=== PATIENT | male | born 1975 | race African-American/Black ===

== ENCOUNTER 2018-09-23 11:25 | Emergency (ER) | payer OTHER, MEDICAID, SELFPAY ==
[2018-09-23 11:32] VITALS: BP 199/117; PULSE 107; RESP 20; TEMP 37; O2SAT 99; BMI 31.1
--- NOTE | 2018-09-23 11:38 | ED.EXTPRO ---
HPI - Extremity Problem <Kelli Mccracken PA-C - Last Filed: 09/23/18 17:06> General Chief complaint: Extremity Problem,Nontraumatic Stated complaint: right calf pain up to back,cant put pressure on it Time Seen by Provider: 09/23/18 11:26 Source: patient Mode of arrival: ambulatory Limitations: no limitations History of Present Illness HPI Narrative: This 43-year-old male complains of 2 day history of worsening right calf pain and swelling. He states 2 days ago, he was in the [employer] hiking about 11 miles with a heavy pack. He does not know of any specific injury but does think he pricked his leg in some bushes. He states that after, he had sensation of a charley horse or pulled muscle. He states that yesterday he thought stretching and working out would help this so tried heat, ice, massage, workout and stretch. Today the pain and swelling or worse to the point that he is having difficulty walking. He does not have weakness or paresthesia. He has not had any fever or noted any overlying skin changes and states he is feeling otherwise at baseline. He notes that he is aware of his very high blood pressure and has not picked up his medication yet that was prescribed recently. He does not have chest pain or dyspnea. No history of blood clots Related Data Previous Rx's Medication Instructions Recorded amoxicillin-pot clavulanate 875 mg PO BID 14 Days #0 tab 02/01/17 [Augmentin] ketorolac 10 mg PO Q6HP PRN #15 tab 02/01/17 Allergies Allergy/AdvReac Type Severity Reaction Status Date / Time No Known Drug Allergies Allergy Verified 09/23/18 11:38 Review of Systems <Kelli Mccracken PA-C - Last Filed: 09/23/18 17:06> Review of Systems ROS Unobtainable: All systems reviewed & are unremarkable except as noted in HPI and below PFSH <Kelli Mccracken PA-C - Last Filed: 09/23/18 17:06> Medical History (Updated 09/23/18 @ 17:02 by Kelli Mccracken PA-C) HTN (hypertension) (Chronic) History of substance abuse (Resolved) Surgical History (Updated 09/23/18 @ 11:41 by Kelli Mccracken PA-C) Status post hernia repair (Resolved) Status post total knee replacement, right (Resolved) Social History Smoking Status: Current every day smoker Social History Smoking Status: Current every day smoker Comment: Uses THC, no ETOH. History of meth and heroin, none currently Exam <Kelli Mccracken PA-C - Last Filed: 09/23/18 17:06> Narrative Exam Narrative: GENERAL APPEARANCE: Patient sitting comfortably, in no distress. NECK/THYROID: Neck supple, no JVD. LUNGS: Clear to auscultation bilaterally. HEART: Regular rate and rhythm without murmur, normal S1, S2, no S3 or S4. EXTREMITIES: No cyanosis or pedal edema. Pedal pulses intact 2+ bilaterally, feet are warm. Right calf is edematous, indurated, tender. No erythema, no visible skin wounds NEUROLOGIC: Alert and oriented, normal speech, and coordination. Sensation grossly intact over the lower extremities Initial Vital Signs Initial Vital Signs: Vital Signs Temperature 98.6 F 09/23/18 11:32 Pulse Rate 107 H 09/23/18 11:32 Respiratory Rate 20 09/23/18 11:32 Blood Pressure 199/117 H 09/23/18 11:32 Pulse Oximetry 99 09/23/18 11:32 <Jayda Hartley DO - Last Filed: 09/24/18 07:49> Initial Vital Signs Initial Vital Signs: Vital Signs Temperature 98.6 F 09/23/18 11:32 Pulse Rate 107 H 09/23/18 11:32 Respiratory Rate 20 09/23/18 11:32 Blood Pressure 199/117 H 09/23/18 11:32 Pulse Oximetry 99 09/23/18 11:32 GENERAL: Well-appearing, well-nourished and in no acute distress. CARDIOVASCULAR: peripheral pulses in tact, cap refill <2 sec RESPIRATORY: No respiratory distress, speaks in full sentences without difficulty EXTREMITIES: Normal range of motion, no clubbing or edema. Neurovascularly intact Right lower extremity extreme tenderness to touch.I actually do not appreciate any color change no erythema no contusion. Distal pedal pulses intact moving quite easily NEUROLOGICAL: Cranial nerves II through XII grossly intact. Normal gait and speech. SKIN: Warm, dry, no petechiae, no rashes or lesions. Course <Kelli Mccracken PA-C - Last Filed: 09/23/18 17:06> Orders Ordered: ED Orders 09/23/18 11:37 periph venous low extrem rt Stat 09/23/18 13:19 Basic Metabolic Panel Stat Complete Blood Count AUTO DIFF Stat Creatine Kinase Stat Vital Signs - 8 hr 09/23/18 11:32 09/23/18 14:12 09/23/18 14:22 Temperature 98.6 F Pulse Rate 107 H 98 H 70 Respiratory Rate 20 18 17 Blood Pressure 199/117 H Blood Pressure [Left Arm] 182/124 H Pulse Oximetry 99 100 100 <Jayda Hartley DO - Last Filed: 09/24/18 07:49> Orders Ordered: ED Orders 09/23/18 11:37 perip venous low extrem rt Stat 09/23/18 13:19 Basic Metabolic Panel Stat Complete Blood Count AUTO DIFF Stat Creatine Kinase Stat Vital Signs - 8 hr 09/23/18 11:32 09/23/18 14:12 09/23/18 14:22 Temperature 98.6 F Pulse Rate 107 H 98 H 70 Respiratory Rate 20 18 17 Blood Pressure 199/117 H Blood Pressure [Left Arm] 182/124 H Pulse Oximetry 99 100 100 MDM - Extremity (Nontraumatic) <Kelli Mccracken PA-C - Last Filed: 09/23/18 17:06> Lab Data Attestation: I reviewed the patient's lab results. Result diagrams: 09/23/18 13:19 09/23/18 13:19 Lab Results 09/23/18 09/23/18 Range/Units 13:19 13:19 WBC 6.0 (4.5-11.0) X10^3/uL RBC 4.46 L (4.5-5.9) X10^6/uL Hgb 13.3 L (13.5-17.5) g/dL Hct 39.9 L (41-53) % MCV 89.6 (80-100) fL MCH 29.8 (26-34) PG MCHC 33.2 (30-36) % RDW 12.9 (11.6-14.8) % Plt Count 308 (150-400) X10^3/uL Neut % (Auto) 64.7 (50-75) % Lymph % (Auto) 26.2 (25-40) % [place] % (Auto) 7.8 (3-14) % Eos % (Auto) 0.3 L (2-4) % Baso % (Auto) 1.0 (0-2) % Neut # (Auto) 3900 (9791-5197) /uL Lymph # (Auto) 1600 (7028-9094) /uL [place] # (Auto) 500 (0-900) /uL Eos # (Auto) 0 (0-450) /uL Baso # (Auto) 100 (0-100) /uL Sodium 139 (137-145) mmol/L Potassium 3.9 (3.4-5.1) mmol/L Chloride 101 (98-107) mmol/L Carbon Dioxide 28 (22-32) mmol/L BUN 8 L (9-20) mg/dL Creatinine 0.90 (0.66-1.25) mg/dL Estimated GFR > 60.0 (>60) mL/min BUN/Creatinine Ratio 8.9 (6-22) Glucose 84 (70-100) mg/dL Calcium 9.5 (8.4-10.2) mg/dL Total Creatine Kinase 361 H (55-170) U/L Imaging Data Venous US: Radiologist's impression: [place] [address] Ultrasound Report Signed Patient: Farhad Copeland PMR#: [id number] : 1975Acct:[id number] Age/Sex: 43 / MDate of Service: 09/23/18 Loc: ED Accession Number: [id number] Procedure: US periph venous low extrem rt Ordering Provider: Kelli Mccracken P.A-C PROCEDURE: US PERIPH VENOUS LOW EXTREM RT INDICATIONS: LEG PAIN AND SWELLING TECHNIQUE: Real-time imaging, as well as color and pulse Doppler interrogation, were performed of the lower extremity deep veins from the inguinal ligament to the popliteal fossa. COMPARISON: None. FINDINGS: The common femoral, femoral and popliteal veins are normally compressible, and free of intraluminal thrombus. Color and pulse Doppler demonstrate normal phasic intraluminal flow. There is normal augmentation response to distal compression maneuver. There is a 1.9 x 8.5 x 2.8 cm hematoma within the medial right calf. IMPRESSION: No evidence of right lower extremity deep vein thrombosis. Dictated by: Mabel Pineda MD, PhD on 09/23/2018 at 12:50 Approved by: Mabel Pineda MD, PhD on 09/23/2018 at 12:51 <Jayda Odilia, DO - Last Filed: 09/24/18 07:49> Lab Data Lab Results 09/23/18 09/23/18 Range/Units 13:19 13:19 WBC 6.0 (4.5-11.0) X10^3/uL RBC 4.46 L (4.5-5.9) X10^6/uL Hgb 13.3 L (13.5-17.5) g/dL Hct 39.9 L (41-53) % MCV 89.6 (80-100) fL MCH 29.8 (26-34) PG MCHC 33.2 (30-36) % RDW 12.9 (11.6-14.8) % Plt Count 308 (150-400) X10^3/uL Neut % (Auto) 64.7 (50-75) % Lymph % (Auto) 26.2 (25-40) % [place] % (Auto) 7.8 (3-14) % Eos % (Auto) 0.3 L (2-4) % Baso % (Auto) 1.0 (0-2) % Neut # (Auto) 3900 (6030-2916) /uL Lymph # (Auto) 1600 (1428-7394) /uL [place] # (Auto) 500 (0-900) /uL Eos # (Auto) 0 (0-450) /uL Baso # (Auto) 100 (0-100) /uL Sodium 139 (137-145) mmol/L Potassium 3.9 (3.4-5.1) mmol/L Chloride 101 (98-107) mmol/L Carbon Dioxide 28 (22-32) mmol/L BUN 8 L (9-20) mg/dL Creatinine 0.90 (0.66-1.25) mg/dL Estimated GFR > 60.0 (>60) mL/min BUN/Creatinine Ratio 8.9 (6-22) Glucose 84 (70-100) mg/dL Calcium 9.5 (8.4-10.2) mg/dL Total Creatine Kinase 361 H (55-170) U/L Discharge Plan Departure Patient Disposition: Home Clinical Impression: Hematoma of lower leg Strain of calf muscle Qualifiers: Encounter type: initial encounter Laterality: right Qualified Code(s): S86.811A - Strain of other muscle(s) and tendon(s) at lower leg level, right leg, initial encounter Discharge Date/Time: 09/23/18 14:24 Interventions: ED Discharge Assessment Last Done: 09/23/18 14:22 Instructions: DI for Calf Muscle Strain, DI for Hematoma (Bruise) Activity Restrictions/Additional Instructions: In addition to straining or calf muscle, you have a collection of blood called a hematoma causing pressure on the muscle under the skin. This does not appear to be creating dangerous pressure on the lower leg or foot. Please elevate the leg above your heart and rest it as much as possible. Gentle walking with the crutches is okay as needed, but keep pressure off of the calf. You should return to the closest ED if you have acutely worsening symptoms, i.e. sudden increase in pain, numbness, cold, or color change in the foot or large increase in swelling. Please set up care with a primary care provider for follow-up from your visit here as well as on your high blood pressure and visit to the other hospital a couple of weeks ago. This is important, and you should call the natural resources manager at [facility] at [phone] when you leave her to get help with this or call your insurance company for a referral so you can be seen next week. I suggest picking up and starting her new blood pressure medicine today. Prescriptions: No Action ketorolac 10 MG tablet 10 mg PO Q6HP PRNQty: 15 RF: 0 amoxicillin-pot clavulanate [Augmentin] 875 MG/125 MG tablet 875 mg PO BID 14 Days Qty: 0 RF: 0 <Jayda Hartley DO - Last Filed: 09/24/18 07:49> [facility] Attending Keshav Attestation: I was immediately available in the department for consultation. Documentation has been reviewed. I agree with assessment and plan. No sign or symptom of compartment syndrome. CPK normal. Hematoma noted on ultrasound.
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
[2018-09-23 13:26] LABS: Add Manual Diff / Slide Review NO; Basophils Absolute Auto 100 /uL (0-100); Eosinophils Absolute Auto 0 /uL (0-450); Eosinophils Percent Auto 0.3 % (2-4); Hematocrit 39.9 % (41-53); Hemoglobin 13.3 g/dL (13.5-17.5); Lymphocytes Absolute Auto 1600 /uL (1100-4500); Lymphocytes Percent Auto 26.2 % (25-40); Mean Corpuscular HGB Conc 33.2 % (30-36); Mean Corpuscular Hemoglobin 29.8 PG (26-34); Mean Corpuscular Volume 89.6 fL (80-100); Monocytes Absolute Auto 500 /uL (0-900); Monocytes Percent Auto 7.8 % (3-14); Neutrophils Absolute Auto 3900 /uL (1500-7000); Neutrophils Percent Auto 64.7 % (50-75); Platelet Count 308 X10^3/uL (150-400); Red Blood Cell Count 4.46 X10^6/uL (4.5-5.9); Red Cell Distribution Width 12.9 % (11.6-14.8)
[2018-09-23 13:37] LABS: BUN Creatinine Ratio 8.9 (6-22); Blood Urea Nitrogen 8 mg/dL (9-20); Calcium 9.5 mg/dL (8.4-10.2); Carbon Dioxide 28 mmol/L (22-32); Chloride 101 mmol/L (98-107); Creatine Kinase 361 U/L (55-170); Estimated Glomerular Filt Rate > 60.0 mL/min (>60); Glucose 84 mg/dL (70-100); HEMOLYSIS < 15 (0-50); Potassium 3.9 mmol/L (3.4-5.1); Sodium 139 mmol/L (137-145)
[2018-09-23 14:12] VITALS: BP 182/124; PULSE 98; RESP 18; O2SAT 100
[2018-09-23 14:22] VITALS: PULSE 70; RESP 17; O2SAT 100
== END 2018-09-23 14:24 | disposition home or self-care (01) ==
PROVIDERS: Emergency Provider Internal Medicine
DX: S80.11XA Contusion of right lower leg, initial encounter (principal); S86.811A Strain of other muscle(s) and tendon(s) at lower leg level, right leg, initial encounter; Y93.01 Activity, walking, marching and hiking
CPT/HCPCS: 36415; 80048; 82550; 85025; 93971; 99282; 99284

== ENCOUNTER 2018-10-27 12:55 | Emergency (ER) | payer OTHER, MEDICAID, SELFPAY ==
[2018-10-27 13:02] VITALS: BP 168/116; PULSE 105; RESP 18; TEMP 37.1; O2SAT 99; BMI 32.5
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
[2018-10-27] MEDS: LIDOCAINE 1% 20 ML INJ SUBCUT (13:37)
[2018-10-27] MEDS: TET,DIPH,PERTUSS(ACELL),VAC/PF 0.5 ML SYRINGE IM (13:38)
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
[2018-10-27 14:48] VITALS: BP 115/104; PULSE 105
== END 2018-10-27 14:50 | disposition home or self-care (01) ==
PROVIDERS: Emergency Provider Emergency Medicine
DX: S61.442A Puncture wound with foreign body of left hand, initial encounter (principal); Y24.0XXA Airgun discharge, undetermined intent, initial encounter; Z23 Encounter for immunization
CPT/HCPCS: 10120; 73130; 90471; 99283; 90715

== ENCOUNTER 2019-04-08 10:50 | Emergency (ER) | payer MEDICAID, SELFPAY ==
[2019-04-08 10:58] VITALS: BP 179/110; PULSE 110; RESP 13; TEMP 36.7; O2SAT 98
--- NOTE | 2019-04-08 11:03 | PC.NURSE ---
nasal clamp placed at triage
[2019-04-08 11:50] LABS: Add Manual Diff / Slide Review NO; Basophils Absolute Auto 0 /uL (0-100); Basophils Percent Auto 0.8 % (0-2); Eosinophils Absolute Auto 0 /uL (0-450); Eosinophils Percent Auto 0.1 % (2-4); Hemoglobin 14.7 g/dL (13.5-17.5); Lymphocytes Absolute Auto 1400 /uL (1100-4500); Lymphocytes Percent Auto 22.9 % (25-40); Mean Corpuscular HGB Conc 33.5 % (30-36); Mean Corpuscular Hemoglobin 29.9 PG (26-34); Mean Corpuscular Volume 89.4 fL (80-100); Monocytes Absolute Auto 800 /uL (0-900); Monocytes Percent Auto 13.2 % (3-14); Neutrophils Absolute Auto 3800 /uL (1500-7000); Platelet Count 308 X10^3/uL (150-400); Red Blood Cell Count 4.92 X10^6/uL (4.5-5.9); Red Cell Distribution Width 13.1 % (11.6-14.8)
[2019-04-08] MEDS: LOSARTAN 50 MG TABLET PO (11:52)
--- NOTE | 2019-04-08 11:53 | ED_ITS ---
HPI - General Adult <PRAVIN Alonso - Last Filed: 04/08/19 14:41> General Chief complaint: Hypertension Stated complaint: high bp, bloody nose x 45 mins Time Seen by Provider: 04/08/19 11:15 Source: patient Mode of arrival: Ambulatory Limitations: no limitations History of Present Illness HPI narrative: The patient is a 43-year-old male current smoker with history of hypertension who presents with a chief complaint of a nose bleed and hypertension. He states he has been without his medications for the past three to four days. He started having a slight nosebleed forty five minutes prior to arrival, Has not applied anything or applied pressure. upon my exam he has removed the nose clamp that was placed on an event triage. He denies any chest pain, shortness of breath, nausea vomiting or diarrhea. He states he had light headedness a few days ago, but none currently. He states he does not know the dose or name of the blood pressure medication that he is supposed to be on. He knows it is not amlodipine as he had a negative reaction to that. He recommends I call [facility] in order to find out what medication he is supposed to be on. He states he is completely out of his losartan. Related Data Allergies Allergy/AdvReac Type Severity Reaction Status Date / Time No Known Drug Allergies Allergy Verified 10/27/18 13:01 Review of Systems <PRAVIN Alonso - Last Filed: 04/08/19 14:41> Review of Systems Narrative: GENERAL: See HPI HEENT: Denies sinus pain, ear pain, sore throat, difficulty swallowing, dizziness. RESPIRATORY: Denies dyspnea, cough, wheezing, hemoptysis, sputum. CARDIOVASCULAR: See HPI GASTROINTESTINAL: Denies nausea, vomiting, abdominal pain, diarrhea, constipation, melena. : Denies dysuria, frequency, incontinence, hematuria, urinary retention. MUSCULOSKELETAL: denies weakness, joint pain, or bony pain SKIN: See HPI NEUROLOGIC: Denies weakness, headache, numbness, change in speech, confusion, seizures, incoordination. PSYCHIATRIC: No concerning psychosocial issues. 12 point review of systems is negative except for those stated above Patient History <PRAVIN Alonso - Last Filed: 04/08/19 14:41> Medical History History of substance abuse (Resolved) HTN (hypertension) (Chronic) Surgical History Status post hernia repair (Resolved) Status post total knee replacement, right (Resolved) Social History Smoking Status: Current every day smoker Smoking Status: Current every day smoker alcohol intake frequency: 0-2 drinks per day Substance Use Type: former substance user and marijuana Exam <IVELISSE Alonso - Last Filed: 04/08/19 14:41> Narrative Exam Narrative: GENERAL: This is a well-nourished, well-developed patient, in no acute distress HEAD: Atraumatic. Normocephalic. No temporal or scalp tenderness. EYES: Pupils equal round and reactive. Extraocular motions intact. No scleral icterus. No injection or drainage. ENT: Nose without bleeding, purulent drainage or septal hematoma. Throat without erythema, tonsillar hypertrophy or exudate. Uvula midline. Airway patent. NECK: Trachea midline. No JVD or lymphadenopathy. Supple, nontender, no meni ngeal signs. CARDIOVASCULAR: Regular rate and rhythm RESPIRATORY: Clear to auscultation. Breath sounds equal bilaterally. No wheezes, rales, or rhonchi. No cough. No increased respiratory effort. No accessory muscle use. GASTROINTESTINAL: Abdomen soft, non-tender, nondistended.No guarding. EXTREMITIES: No clubbing, cyanosis, or edema. No joint tenderness, effusion, or edema noted. BACK: Nontender without deformity or crepitance. No flank tenderness. NEURO: AOx3. Interactive. Age appropriate. Using all extremities. Stable gait. SKIN: No rash or erythema on visible skin Initial Vital Signs Initial Vital Signs: Vital Signs Temperature 98.1 F 04/08/19 10:58 Pulse Rate 110 H 04/08/19 10:58 Respiratory Rate 13 04/08/19 10:58 Blood Pressure 179/110 H 04/08/19 10:58 Pulse Oximetry 98 04/08/19 10:58 <Felipe Buckner DO - Last Filed: 04/08/19 18:42> Initial Vital Signs Initial Vital Signs: Vital Signs Temperature 98.1 F 04/08/19 10:58 Pulse Rate 110 H 04/08/19 10:58 Respiratory Rate 13 04/08/19 10:58 Blood Pressure 179/110 H 04/08/19 10:58 Pulse Oximetry 98 04/08/19 10:58 Scores <Denisa IVELISSE Banuelos - Last Filed: 04/08/19 14:41> GCS [place] coma scale eye opening: Spontaneous [place] coma scale verbal response: Orientated [place] coma scale motor response: Obey commands [place] coma scale total score: 15 Course <IVELISSE Alonso - Last Filed: 04/08/19 14:41> Orders Ordered: ED Orders 04/08/19 11:28 EKG-12 Lead Stat 04/08/19 11:40 Complete Blood Count AUTO DIFF Stat Comprehensive Metabolic Panel Stat Partial Thromboplastin Time Stat Prothrombin Time INR Stat Troponin & CK Cardiac Panel Stat Discontinued Medications Losartan Potassium (Cozaar) 25 mg PO NOW ONE Stop: 04/08/19 11:32 Losartan Potassium (Cozaar) 50 mg PO NOW ONE Stop: 04/08/19 11:34 Last Admin: 04/08/19 11:52 Dose: 50 mg Documented by: SAMANTHA Vital Signs Vital signs: Vital Signs - 8 hr 04/08/19 10:58 04/08/19 12:39 Temperature 98.1 F Pulse Rate 110 H 76 Respiratory Rate 13 13 Blood Pressure 179/110 H 180/140 H Pulse Oximetry 98 <Felipe Buckner DO - Last Filed: 04/08/19 18:42> Orders Ordered: ED Orders 04/08/19 11:28 EKG-12 Lead Stat 04/08/19 11:40 Complete Blood Count AUTO DIFF Stat Comprehensive Metabolic Panel Stat Partial Thromboplastin Time Stat Prothrombin Time INR Stat Troponin & CK Cardiac Panel Stat Discontinued Medications Losartan Potassium (Cozaar) 25 mg PO NOW ONE Stop: 04/08/19 11:32 Losartan Potassium (Cozaar) 50 mg PO NOW ONE Stop: 04/08/19 11:34 Last Admin: 04/08/19 11:52 Dose: 50 mg Documented by: SAMANTHA Vital Signs Vital signs: Vital Signs - 8 hr 04/08/19 10:58 04/08/19 12:39 Temperature 98.1 F Pulse Rate 110 H 76 Respiratory Rate 13 13 Blood Pressure 179/110 H 180/140 H Pulse Oximetry 98 Medical Decision Making <Denisa Banuelos, [employer] - Last Filed: 04/08/19 14:41> Lab Data Result diagrams: 04/08/19 11:40 04/08/19 11:40 Labs: Lab Results 04/08/19 04/08/19 04/08/19 Range/Units 11:40 11:40 11:40 WBC 6.0 (4.5-11.0) X10^3/uL RBC 4.92 (4.5-5.9) X10^6/uL Hgb 14.7 (13.5-17.5) g/dL Hct 44.0 (41-53) % MCV 89.4 (80-100) fL MCH 29.9 (26-34) PG MCHC 33.5 (30-36) % RDW 13.1 (11.6-14.8) % Plt Count 308 (150-400) X10^3/uL Neut % (Auto) 63.0 (50-75) % Lymph % (Auto) 22.9 L (25-40) % Garden % (Auto) 13.2 (3-14) % Eos % (Auto) 0.1 L (2-4) % Baso % (Auto) 0.8 (0-2) % Neut # (Auto) 3800 (2262-3033) /uL Lymph # (Auto) 1400 (6420-0016) /uL Garden # (Auto) 800 (0-900) /uL Eos # (Auto) 0 (0-450) /uL Baso # (Auto) 0 (0-100) /uL PT 13.2 H (10.1-12.7) SECONDS INR 1.1 (0.9-1.3) APTT 35 (26.4-36.2) SECONDS Sodium 138 (137-145) mmol/L Potassium 4.0 (3.4-5.1) mmol/L Chloride 98 (98-107) mmol/L Carbon Dioxide 29 (22-32) mmol/L BUN 14 (9-20) mg/dL Creatinine 1.10 (0.66-1.25) mg/dL Estimated GFR > 60.0 (>60) mL/min BUN/Creatinine Ratio 12.7 (6-22) Glucose 84 (70-100) mg/dL Calcium 10.1 (8.4-10.2) mg/dL Total Bilirubin 1.0 (0.2-1.3) mg/dL AST 58 (17-59) IU/L ALT 27 (<50) IU/L Alkaline Phosphatase 79 (38-126) U/L Total Creatine Kinase (55-170) U/L CK-MB (CK-2) (<2.37) ng/mL CK-MB (CK-2) Rel Index (1.5-5.0) % Troponin I (0.01-0.034) ng/mL Total Protein 8.4 H (6.3-8.2) g/dL Albumin 5.0 (3.5-5.0) g/dL Globulin 3.4 (1.7-4.1) g/dL Albumin/Globulin Ratio 1.5 (1.0-2.8) 04/08/19 Range/Units 11:40 WBC (4.5-11.0) X10^3/uL RBC (4.5-5.9) X10^6/uL Hgb (13.5-17.5) g/dL Hct (41-53) % MCV (80-100) fL MCH (26-34) PG MCHC (30-36) % RDW (11.6-14.8) % Plt Count (150-400) X10^3/uL Neut % (Auto) (50-75) % Lymph % (Auto) (25-40) % Garden % (Auto) (3-14) % Eos % (Auto) (2-4) % Baso % (Auto) (0-2) % Neut # (Auto) (0737-3254) /uL Lymph # (Auto) (9728-2090) /uL Garden # (Auto) (0-900) /uL Eos # (Auto) (0-450) /uL Baso # (Auto) (0-100) /uL PT (10.1-12.7) SECONDS INR (0.9-1.3) APTT (26.4-36.2) SECONDS Sodium (137-145) mmol/L Potassium (3.4-5.1) mmol/L Chloride (98-107) mmol/L Carbon Dioxide (22-32) mmol/L BUN (9-20) mg/dL Creatinine (0.66-1.25) mg/dL Estimated GFR (>60) mL/min BUN/Creatinine Ratio (6-22) Glucose (70-100) mg/dL Calcium (8.4-10.2) mg/dL Total Bilirubin (0.2-1.3) mg/dL AST (17-59) IU/L ALT (<50) IU/L Alkaline Phosphatase (38-126) U/L Total Creatine Kinase 538 H (55-170) U/L CK-MB (CK-2) 6.00 H (<2.37) ng/mL CK-MB (CK-2) Rel Index 1.1 L (1.5-5.0) % Troponin I < 0.012 (0.01-0.034) ng/mL Total Protein (6.3-8.2) g/dL Albumin (3.5-5.0) g/dL Globulin (1.7-4.1) g/dL Albumin/Globulin Ratio (1.0-2.8) ECG Data Attestation: I personally reviewed and interpreted this ECG as follows: Interpretation: Sinus tachycardia. Ventricular rate 106. P.r. interval 128. QRS duration 107. No ectopy noted. MDM Narrative Medical decision making narrative: The patient is a 43-year-old male who presents with a chief complaint of hypertension and a nose bleed. His nose bleed stopped without intervention other than nose clamp. He was noted to be hypertensive in the emergency department, and has not been taking his m edication. [place], who stated that he was discharged from [facility] on 04/05/2019 and was supposed to take 50 mg of losartan daily. Blood pressure recheck after 50 mg was still elevated, lab work was pending. However the patient stated he had to leave immediately to go get his kids. I discussed the risk of heart attack, stroke and/or related to untreated hypertension. Patient is GCS 15 and competent to make his own decisions. Patient still wants to leave. This conversation happened in front of [facility], and Against Medical Advice form was filled out. Patient ambulated outside of the department with no incidence on own accord. <Felipe Buckner DO - Last Filed: 04/08/19 18:42> Lab Data Labs: Lab Results 04/08/19 04/08/19 04/08/19 Range/Units 11:40 11:40 11:40 WBC 6.0 (4.5-11.0) X10^3/uL RBC 4.92 (4.5-5.9) X10^6/uL Hgb 14.7 (13.5-17.5) g/dL Hct 44.0 (41-53) % MCV 89.4 (80-100) fL MCH 29.9 (26-34) PG MCHC 33.5 (30-36) % RDW 13.1 (11.6-14.8) % Plt Count 308 (150-400) X10^3/uL Neut % (Auto) 63.0 (50-75) % Lymph % (Auto) 22.9 L (25-40) % Garden % (Auto) 13.2 (3-14) % Eos % (Auto) 0.1 L (2-4) % Baso % (Auto) 0.8 (0-2) % Neut # (Auto) 3800 (4689-0545) /uL Lymph # (Auto) 1400 (6038-6133) /uL Garden # (Auto) 800 (0-900) /uL Eos # (Auto) 0 (0-450) /uL Baso # (Auto) 0 (0-100) /uL PT 13.2 H (10.1-12.7) SECONDS INR 1.1 (0.9-1.3) APTT 35 (26.4-36.2) SECONDS Sodium 138 (137-145) mmol/L Potassium 4.0 (3.4-5.1) mmol/L Chloride 98 (98-107) mmol/L Carbon Dioxide 29 (22-32) mmol/L BUN 14 (9-20) mg/dL Creatinine 1.10 (0.66-1.25) mg/dL Estimated GFR > 60.0 (>60) mL/min BUN/Creatinine Ratio 12.7 (6-22) Glucose 84 (70-100) mg/dL Calcium 10.1 (8.4-10.2) mg/dL Total Bilirubin 1.0 (0.2-1.3) mg/dL AST 58 (17-59) IU/L ALT 27 (<50) IU/L Alkaline Phosphatase 79 (38-126) U/L Total Creatine Kinase (55-170) U/L CK-MB (CK-2) (<2.37) ng/mL CK-MB (CK-2) Rel Index (1.5-5.0) % Troponin I (0.01-0.034) ng/mL Total Protein 8.4 H (6.3-8.2) g/dL Albumin 5.0 (3.5-5.0) g/dL Globulin 3.4 (1.7-4.1) g/dL Albumin/Globulin Ratio 1.5 (1.0-2.8) 04/08/19 Range/Units 11:40 WBC (4.5-11.0) X10^3/uL RBC (4.5-5.9) X10^6/uL Hgb (13.5-17.5) g/dL Hct (41-53) % MCV (80-100) fL MCH (26-34) PG MCHC (30-36) % RDW (11.6-14.8) % Plt Count (150-400) X10^3/uL Neut % (Auto) (50-75) % Lymph % (Auto) (25-40) % Garden % (Auto) (3-14) % Eos % (Auto) (2-4) % Baso % (Auto) (0-2) % Neut # (Auto) (6016-1552) /uL Lymph # (Auto) (5025-3177) /uL Garden # (Auto) (0-900) /uL Eos # (Auto) (0-450) /uL Baso # (Auto) (0-100) /uL PT (10.1-12.7) SECONDS INR (0.9-1.3) APTT (26.4-36.2) SECONDS Sodium (137-145) mmol/L Potassium (3.4-5.1) mmol/L Chloride (98-107) mmol/L Carbon Dioxide (22-32) mmol/L BUN (9-20) mg/dL Creatinine (0.66-1.25) mg/dL Estimated GFR (>60) mL/min BUN/Creatinine Ratio (6-22) Glucose (70-100) mg/dL Calcium (8.4-10.2) mg/dL Total Bilirubin (0.2-1.3) mg/dL AST (17-59) IU/L ALT (<50) IU/L Alkaline Phosphatase (38-126) U/L Total Creatine Kinase 538 H (55-170) U/L CK-MB (CK-2) 6.00 H (<2.37) ng/mL CK-MB (CK-2) Rel Index 1.1 L (1.5-5.0) % Troponin I < 0.012 (0.01-0.034) ng/mL Total Protein (6.3-8.2) g/dL Albumin (3.5-5.0) g/dL Globulin (1.7-4.1) g/dL Albumin/Globulin Ratio (1.0-2.8) Discharge Plan Departure Patient Disposition: Left Against Medical Advice Clinical Impression: Hypertension Qualifiers: Hypertension type: unspecified Qualified Code(s): I10 - Essential (primary) hypertension Discharge Date/Time: 04/08/19 12:40 Stand Alone Forms: Against Medical Advice
[2019-04-08 11:54] LABS: INR 1.1 (0.9-1.3); Prothrombin Time 13.2 SECONDS (10.1-12.7)
[2019-04-08 11:56] LABS: PTT Partial Thromboplastin Tim 35 SECONDS (26.4-36.2)
[2019-04-08 11:59] LABS: Alanine Aminotransferase 27 IU/L (<50); Albumin Globulin Ratio 1.5 (1.0-2.8); Alkaline Phosphatase 79 U/L (38-126); Aspartate Aminotransferase 58 IU/L (17-59); BUN Creatinine Ratio 12.7 (6-22); Blood Urea Nitrogen 14 mg/dL (9-20); Calcium 10.1 mg/dL (8.4-10.2); Carbon Dioxide 29 mmol/L (22-32); Chloride 98 mmol/L (98-107); Estimated Glomerular Filt Rate > 60.0 mL/min (>60); Globulin 3.4 g/dL (1.7-4.1); Glucose 84 mg/dL (70-100); HEMOLYSIS 18 (0-50); Sodium 138 mmol/L (137-145); Total Protein 8.4 g/dL (6.3-8.2)
[2019-04-08 12:12] LABS: Creatine Kinase 538 U/L (55-170)
[2019-04-08 12:25] LABS: Troponin I < 0.012 ng/mL (0.01-0.034)
[2019-04-08 12:27] LABS: CKMB % Relative Index 1.1 % (1.5-5.0)
--- NOTE | 2019-04-08 12:37 | PC.NURSE ---
pt at desk, took bp cuff off, states has to see his children/ refused to stay and get finished being treated. dariela to see/ ama signed by pt
[2019-04-08 12:39] VITALS: BP 180/140; PULSE 76; RESP 13
== END 2019-04-08 12:40 | disposition left against medical advice (07) ==
PROVIDERS: Emergency Provider Nurse Practitioner Family
DX: I10 Essential (primary) hypertension (principal); R04.0 Epistaxis
CPT/HCPCS: 36415; 80053; 82550; 82553; 84484; 85025; 85610; 85730; 93005; 99283; 99284

== ENCOUNTER 2020-10-11 21:55 | Observation (INO) | payer OTHER, MEDICAID, SELFPAY ==
[2020-10-11 21:59] VITALS: BP 152/99; PULSE 118; RESP 27; TEMP 36.2; O2SAT 96; BMI 33.7
--- NOTE | 2020-10-11 22:13 | DI.RAD.S_ITS ---
PROCEDURE: XR CHEST 1V INDICATIONS: flu-like symptoms TECHNIQUE: One view of the chest was acquired. COMPARISON: None. FINDINGS: Surgical changes and devices: None. Lungs and pleura: Lungs are clear. No pleural effusions or pneumothorax. Mediastinum: Mediastinal contours appear normal. Heart size is normal. Bones and chest wall: No suspicious bony lesions. Overlying soft tissues appear unremarkable. IMPRESSION: Acute cardiopulmonary findings Note: Final report is concordant with preliminary interpretation by [facility] Dictated by: Uriah Hwang M.D. on 10/12/2020 at 7:04 Approved by: Uriah Hwang M.D. on 10/12/2020 at 7:06
[2020-10-11 22:24] LABS: COVID19 -Nasal RAPID POSITIVE (Negative)
[2020-10-11 22:47] VITALS: BP 138/96; PULSE 111; O2SAT 95
[2020-10-11 23:00] VITALS: PULSE 104; RESP 22; O2SAT 98
[2020-10-11] MEDS: SODIUM CHLORIDE 0.9% 1,000 ML 125 ML IV (23:09)
[2020-10-11 23:10] LABS: Add Manual Diff / Slide Review NO; Basophils Absolute Auto 200 /uL (0-100); Basophils Percent Auto 2.3 % (0-2); Eosinophils Absolute Auto 0 /uL (0-450); Hematocrit 42.1 % (41-53); Hemoglobin 13.9 g/dL (13.5-17.5); Lymphocytes Absolute Auto 800 /uL (1100-4500); Mean Corpuscular Hemoglobin 29.1 PG (26-34); Mean Corpuscular Volume 88.1 fL (80-100); Monocytes Absolute Auto 700 /uL (0-900); Monocytes Percent Auto 8.6 % (3-14); Neutrophils Absolute Auto 6200 /uL (1500-7000); Neutrophils Percent Auto 79.1 % (50-75); Platelet Count 242 X10^3/uL (150-400); Red Blood Cell Count 4.78 X10^6/uL (4.5-5.9); Red Cell Distribution Width 13.1 % (11.6-14.8); White Blood Cell Count 7.8 X10^3/uL (4.5-11.0)
[2020-10-11 23:11] LABS: Lactate (Lactic Acid) 1.1 mmol/L (0.7-2.1)
[2020-10-11 23:15] LABS: Alanine Aminotransferase 33 IU/L (<50); Albumin 4.4 g/dL (3.5-5.0); Albumin Globulin Ratio 1.2 (1.0-2.8); Alkaline Phosphatase 80 U/L (38-126); Aspartate Aminotransferase 39 IU/L (17-59); BUN Creatinine Ratio 13.2 (6-22); Bilirubin Total 1.1 mg/dL (0.2-1.3); Blood Urea Nitrogen 16 mg/dL (9-20); Calcium 9.3 mg/dL (8.4-10.2); Carbon Dioxide 23 mmol/L (22-32); Chloride 98 mmol/L (98-107); Creatine Kinase 192 U/L (55-170); Estimated Glomerular Filt Rate > 60.0 mL/min (>60); Globulin 3.7 g/dL (1.7-4.1); Glucose 111 mg/dL (70-100); HEMOLYSIS < 15 (0-50); Lactate Dehydrogenase 632 U/L (313-618); Potassium 3.9 mmol/L (3.4-5.1); Sodium 132 mmol/L (137-145); Total Protein 8.1 g/dL (6.3-8.2)
[2020-10-11 23:18] LABS: D Dimer 342 ng/mL (<230)
[2020-10-11 23:21] LABS: NT-proBNP (BNP-Adult 18+) 35 pg/mL (<125)
[2020-10-11 23:30] VITALS: PULSE 106; RESP 34; O2SAT 94
--- NOTE | 2020-10-11 23:30 | ED.GENADULT ---
HPI - General Adult General Chief complaint: Shortness of Breath/Dyspnea Stated complaint: EXPOSED TO COVID FATIGUE SOB DEEP CHEST COUGH DEHY Time Seen by Provider: 10/11/20 22:48 Source: patient Mode of arrival: Wheelchair Limitations: no limitations History of Present Illness HPI narrative: 45-year-old gentleman complains with increasing dyspnea and cough. Recent exposure to COVID. Initial COVID test returns positive. Due to significant acuity in the emergency department simultaneously, hospitalist was immediately available and evaluated patient in the emergency department. I did not see or physically examine patient in the emergency department. Related Data Home Medications Medication Instructions Recorded Confirmed lisinopril 5 mg tablet 5 mg PO QAM 10/11/20 10/11/20 Allergies Allergy/AdvReac Type Severity Reaction Status Date / Time No Known Drug Allergies Allergy Verified 10/11/20 22:03 Review of Systems Review of Systems Narrative: I did not obtain a review of systems Patient History Medical History History of substance abuse HTN (hypertension) Obesity (BMI 30.0-34.9) Tobacco abuse Surgical History Status post hernia repair Status post total knee replacement, right Family History (Updated 10/12/20 @ 00:31 by IVELISSE Freitas) Mother Hypertension Diabetes mellitus Father Hypertension Diabetes mellitus Social History household members: none Smoking Status: Current every day smoker alcohol intake: current Smoking Status: Current every day smoker alcohol intake frequency: 0-2 drinks per day Substance Use Type: former substance user and marijuana Exam Narrative Exam Narrative: Patient was not examined Initial Vital Signs Initial Vital Signs: Vital Signs Temperature 97.1 F L 10/11/20 21:59 Pulse Rate 118 H 10/11/20 21:59 Respiratory Rate 27 H 10/11/20 21:59 Blood Pressure 152/99 H 10/11/20 21:59 Pulse Oximetry 96 10/11/20 21:59 Course Orders Ordered: ED Orders 10/11/20 22:07 COVID19 -Nasal swab/Pre-Proc Stat 10/11/20 22:13 XR chest 1V Stat EKG-12 Lead Stat 10/11/20 22:45 C-Reactive Protein Quant Stat Complete Blood Count AUTO DIFF Stat Comprehensive Metabolic Panel Stat D Dimer Stat Lactate (Lactic Acid) Stat Lactate Dehydrogenase Stat NT-proBNP (BNP-Adult 18+) Stat Procalcitonin Stat Troponin & CK Cardiac Panel Stat 10/11/20 23:10 Blood Culture Stat Acetaminophen (Acetaminophen 325 Mg Tablet) 650 mg PO Q6HR PRN PRN Reason: Fever/Mild Pain (1-3) Al Hydrox/Mg Hydrox/Simethicone (Mag Hydrox/Alum/Simeth 30 Ml Udc) 30 ml PO Q6HR PRN PRN Reason: Dyspepsia Albuterol (Albuterol 2.5 Mg/3 Ml Neb (Adult)) 2.5 mg INH Q4H PRN PRN Reason: SOB, COUGH Heparin Sodium (Porcine) (Heparin 5,000 Unit/Ml Vial) 5,000 unit SUBCUT BID [facility] Last Admin: 10/12/20 02:18 Dose: 5,000 unit Documented by: REINALDO Sodium Chloride (Normal Saline 0.9%) 1,000 mls @ 125 mls/hr IV CONT [facility] Last Admin: 10/11/20 23:09 Dose: 125 mls/hr Documented by: HARJINDER Sodium Chloride (Normal Saline 0.9%) 1,000 mls @ 100 mls/hr IV CONT [facility] Last Admin: 10/12/20 02:17 Dose: 100 mls/hr Documented by: REINALDO Lisinopril (Lisinopril 20 Mg Tablet) 20 mg PO DAILY [facility] Naloxone HCl (Naloxone 0.4 Mg/Ml Vial) 0.2 mg IV Q2MIN PRN PRN Reason: Opiate Reversal Ondansetron HCl (Ondansetron 4 Mg/2 Ml Inj) 4 mg IV Q8HR PRN PRN Reason: Nausea And Vomiting Prednisone (Prednisone 20 Mg Tablet) 40 mg PO DAILY [facility] Discontinued Medications Albuterol (Albuterol Hfa Mdi 60 Puff/8 Gm Inhaler) 2 puff INH RTQ4HR PRN PRN Reason: Shortness Of Breath or cough Dexamethasone (Dexamethasone 10 Mg/Ml Vial) 10 mg IV NOW ONE Stop: 10/12/20 00:24 Last Admin: 10/12/20 02:18 Dose: 10 mg Documented by: REINALDO Metoprolol Tartrate (Metoprolol Tartrate 5 Mg/5 Ml Inj) 5 mg IV NOW ONE Stop: 10/12/20 00:24 Last Admin: 10/12/20 02:19 Dose: 5 mg Documented by: REINALDO Vital Signs Vital signs: Vital Signs - 8 hr 10/11/20 21:59 10/11/20 22:47 10/11/20 23:00 Temperature 97.1 F L Pulse Rate 118 H 111 H 104 H Respiratory Rate 27 H 22 Blood Pressure 152/99 H 138/96 H Pulse Oximetry 96 95 98 10/11/20 23:30 10/12/20 00:00 Temperature Pulse Rate 106 H 107 H Respiratory Rate 34 H Blood Pressure Pulse Oximetry 94 96 Medical Decision Making Lab Data Result diagrams: 10/11/20 22:45 10/11/20 22:45 Labs: Lab Results 10/11/20 10/11/20 10/11/20 Range/Units 22:07 22:45 22:45 WBC (4.5-11.0) X10^3/uL RBC (4.5-5.9) X10^6/uL Hgb (13.5-17.5) g/dL Hct (41-53) % MCV (80-100) fL MCH (26-34) PG MCHC (30-36) % RDW (11.6-14.8) % Plt Count (150-400) X10^3/uL Neut % (Auto) (50-75) % Lymph % (Auto) (25-40) % Evangeline % (Auto) (3-14) % Eos % (Auto) (2-4) % Baso % (Auto) (0-2) % Neut # (Auto) (7878-2374) /uL Lymph # (Auto) (8592-7496) /uL Evangeline # (Auto) (0-900) /uL Eos # (Auto) (0-450) /uL Baso # (Auto) (0-100) /uL D-Dimer 342 H (<230) ng/mL Sodium (137-145) mmol/L Potassium (3.4-5.1) mmol/L Chloride (98-107) mmol/L Carbon Dioxide (22-32) mmol/L BUN (9-20) mg/dL Creatinine (0.66-1.25) mg/dL Estimated GFR (>60) mL/min BUN/Creatinine Ratio (6-22) Glucose (70-100) mg/dL Lactate (0.7-2.1) mmol/L Calcium (8.4-10.2) mg/dL Magnesium (1.6-2.3) mg/dL Total Bilirubin (0.2-1.3) mg/dL AST (17-59) IU/L ALT (<50) IU/L Alkaline Phosphatase (38-126) U/L Lactate Dehydrogenase (313-618) U/L Total Creatine Kinase (55-170) U/L CK-MB (CK-2) (<2.37) ng/mL CK-MB (CK-2) Rel Index (1.5-5.0) % Troponin I (0.01-0.034) ng/mL C-Reactive Protein (<1.0) mg/dL NT-Pro-B Natriuret Pep (<125) pg/mL Total Protein (6.3-8.2) g/dL Albumin (3.5-5.0) g/dL Globulin (1.7-4.1) g/dL Albumin/Globulin Ratio (1.0-2.8) Procalcitonin 0.20 (<0.5) ng/mL SARS-CoV-2 (PCR) Positive H (Negative) 10/11/20 10/11/20 10/11/20 Range/Units 22:45 22:45 22:45 WBC 7.8 (4.5-11.0) X10^3/uL RBC 4.78 (4.5-5.9) X10^6/uL Hgb 13.9 (13.5-17.5) g/dL Hct 42.1 (41-53) % MCV 88.1 (80-100) fL MCH 29.1 (26-34) PG MCHC 33.0 (30-36) % RDW 13.1 (11.6-14.8) % Plt Count 242 (150-400) X10^3/uL Neut % (Auto) 79.1 H (50-75) % Lymph % (Auto) 10.0 L (25-40) % Evangeline % (Auto) 8.6 (3-14) % Eos % (Auto) 0.0 L (2-4) % Baso % (Auto) 2.3 H (0-2) % Neut # (Auto) 6200 (2558-9358) /uL Lymph # (Auto) 800 L (8139-6864) /uL Evangeline # (Auto) 700 (0-900) /uL Eos # (Auto) 0 (0-450) /uL Baso # (Auto) 200 H (0-100) /uL D-Dimer (<230) ng/mL Sodium 132 L (137-145) mmol/L Potassium 3.9 (3.4-5.1) mmol/L Chloride 98 (98-107) mmol/L Carbon Dioxide 23 (22-32) mmol/L BUN 16 (9-20) mg/dL Creatinine 1.21 (0.66-1.25) mg/dL Estimated GFR > 60.0 (>60) mL/min BUN/Creatinine Ratio 13.2 (6-22) Glucose 111 H (70-100) mg/dL Lactate 1.1 (0.7-2.1) mmol/L Calcium 9.3 (8.4-10.2) mg/dL Magnesium (1.6-2.3) mg/dL Total Bilirubin 1.1 (0.2-1.3) mg/dL AST 39 (17-59) IU/L ALT 33 (<50) IU/L Alkaline Phosphatase 80 (38-126) U/L Lactate Dehydrogenase 632 H (313-618) U/L Total Creatine Kinase 192 H (55-170) U/L CK-MB (CK-2) 1.00 (<2.37) ng/mL CK-MB (CK-2) Rel Index 0.5 L (1.5-5.0) % Troponin I < 0.012 (0.01-0.034) ng/mL C-Reactive Protein 15.8 H (<1.0) mg/dL NT-Pro-B Natriuret Pep 35 (<125) pg/mL Total Protein 8.1 (6.3-8.2) g/dL Albumin 4.4 (3.5-5.0) g/dL Globulin 3.7 (1.7-4.1) g/dL Albumin/Globulin Ratio 1.2 (1.0-2.8) Procalcitonin (<0.5) ng/mL SARS-CoV-2 (PCR) (Negative) 10/11/20 Range/Units 22:45 WBC (4.5-11.0) X10^3/uL RBC (4.5-5.9) X10^6/uL Hgb (13.5-17.5) g/dL Hct (41-53) % MCV (80-100) fL MCH (26-34) PG MCHC (30-36) % RDW (11.6-14.8) % Plt Count (150-400) X10^3/uL Neut % (Auto) (50-75) % Lymph % (Auto) (25-40) % Evangeline % (Auto) (3-14) % Eos % (Auto) (2-4) % Baso % (Auto) (0-2) % Neut # (Auto) (5290-5066) /uL Lymph # (Auto) (2434-4072) /uL Evangeline # (Auto) (0-900) /uL Eos # (Auto) (0-450) /uL Baso # (Auto) (0-100) /uL D-Dimer (<230) ng/mL Sodium (137-145) mmol/L Potassium (3.4-5.1) mmol/L Chloride (98-107) mmol/L Carbon Dioxide (22-32) mmol/L BUN (9-20) mg/dL Creatinine (0.66-1.25) mg/dL Estimated GFR (>60) mL/min BUN/Creatinine Ratio (6-22) Glucose (70-100) mg/dL Lactate (0.7-2.1) mmol/L Calcium (8.4-10.2) mg/dL Magnesium 1.8 (1.6-2.3) mg/dL Total Bilirubin (0.2-1.3) mg/dL AST (17-59) IU/L ALT (<50) IU/L Alkaline Phosphatase (38-126) U/L Lactate Dehydrogenase (313-618) U/L Total Creatine Kinase (55-170) U/L CK-MB (CK-2) (<2.37) ng/mL CK-MB (CK-2) Rel Index (1.5-5.0) % Troponin I (0.01-0.034) ng/mL C-Reactive Protein (<1.0) mg/dL NT-Pro-B Natriuret Pep (<125) pg/mL Total Protein (6.3-8.2) g/dL Albumin (3.5-5.0) g/dL Globulin (1.7-4.1) g/dL Albumin/Globulin Ratio (1.0-2.8) Procalcitonin (<0.5) ng/mL SARS-CoV-2 (PCR) (Negative) MDM Narrative Medical decision making narrative: In the spirit of outstanding collegiality and excellent patient care Ms. Figueredo, hospitalist MICHAEL examined this patient in the emergency department and arranged for hospital admission directly. Discharge Plan Departure Patient Disposition: Admitted As Inpatient Clinical Impression: COVID-19 Admit Date/Time: 10/12/20 00:09 Admit Provider: Kira Figueredo
[2020-10-11 23:32] LABS: Troponin I < 0.012 ng/mL (0.01-0.034)
[2020-10-11 23:46] LABS: CKMB % Relative Index 0.5 % (1.5-5.0)
[2020-10-12] VITALS (13 sets, daily range): BP systolic 124–166; BP diastolic 94–120; PULSE 74–107; RESP 14–24; TEMP 36.1–38.6; O2SAT 96–99; BMI 36.1
--- NOTE | 2020-10-12 00:25 | P.HP_ITS ---
History of Present Illness History of Present Illness Date Patient Seen: 10/12/20 Time Patient Seen: 00:26 Chief complaint: EXPOSED TO COVID FATIGUE SOB DEEP CHEST COUGH DEHY Narrative: Patient is a 45-year-old male Farhad Copeland who presented to the ED this evening for 4 days of consistent and worsening fatigue body aches, shortness of breath chills diaphoresis, worsening with activity. Patient states that he was exposed to 2 people a couple days ago that were both Covid positive, he has not received the vaccine. He also complains of a mild headache, nausea, no vomiting but he has not been eating decreased appetite, he has felt feverish and diaphoretic and has chest pain with deep breathing & cough. He has ear pressure changes with coughing some mild nasal drainage and a productive cough. Patient denies any respiratory or cardiac history. Patient admit exam done in ED patient was not on oxygen and was satting at 96% on room air in no distress at that time although appeared moderately ill. The patient states his only medical history is hypertension of which she takes lisinopril for denies all other history. Patient states he has no medication allergies except for a possible blood pressure med which he cannot recall. The patient is homeless and sleeps in a camp he is a smoker times 20 years rarely drinks alcohol and occasionally uses marijuana methamphetamines and or heroin. Patient states that he has not used any recreational substances within the past week. Upon admit patient's vitals demonstrated that he was slightly hypertensive with a BP 152/99, tachycardic HR 118, tachypneic RR 27, again not on oxygen O2 saturation 96% on room air. Patient was unable to speak in full complete sentences without shortness of breath or work of breathing. Patient's CBC was unremarkable, patient did have hyponatremia with a sodium of 132, lactate D 632, total creatinine kinase 192, initial troponin< 0.012, CRP is pending, BNP 35, and procalcitonin 0.20. Patient's chest x-ray demonstrated no acute cardiopulmonary findings. Patient will be admitted for COVID-19 infection. Patient History Medical History History of substance abuse HTN (hypertension) Obesity (BMI 30.0-34.9) Tobacco abuse Surgical History Status post hernia repair Status post total knee replacement, right Family & Social History Family History (Updated 10/12/20 @ 00:31 by TOMY FreitasZACK) Mother Hypertension Diabetes mellitus Father Hypertension Diabetes mellitus Safety & Behavioral: Feels Safe in Current Yes-patient lives at a homeless and encampment Environment Been Physically Hurt or No Threatened By a Person Tobacco & Substance use: Smoking Status Current every day smoker alcohol intake frequency 0-2 drinks per day Substance Use Type marijuana,former substance user Meds Home Medications and Allergies Home Medications Medication Instructions Recorded Confirmed Type lisinopril 5 mg tablet 5 mg PO QAM 10/11/20 10/11/20 History Allergies Allergy/AdvReac Type Severity Reaction Status Date / Time No Known Drug Allergies Allergy Verified 10/11/20 22:03 Review of Systems Review of Systems Narrative: All systems reviewed with the patient and are negative except otherwise documented. Exam Vital Signs (past 8 hours): - 10/11/20 21:59 Temperature 97.1 F L Pulse Rate 118 H Respiratory Rate 27 H Blood Pressure 152/99 H Pulse Oximetry 96 Oxygen Delivery Method Room Air Narrative Exam Narrative: General: Patient is a well-developed, well-nourished male, who is moderately ill appearing with mild work of breathing but in no acute distress at this time. HEENT: Normocephalic, atraumatic, extraocular muscles intact, oral pharynx is clear and mucous membranes are dry. Neck is supple and symmetric, trachea is midline, no adenopathy, no thyroid enlargement, nontender, no masses palpated. Negative for JVD Chest: Normal AP diameter and contour without kyphoscoliosis, no nasal flaring, retractions, or tachypneic labored Lungs: Auscultation of all lung arrieta are dimished throughout, shallow breaths, occansional crackles in the left base. Cardio: regular rate and rhythm without murmur, rubs, or gallops, no carotid bruit, no cardiac pulsations present. Abdomen: Soft nontender, negative for organomegaly, or masses. Bowel sounds are present in all 4 quadrants without guarding or rebound, no CVA tenderness. Musculoskeletal: Muscle strength and tone are equal within normal limits, no deformity, crepitus, effusions, cyanosis, clubbing or edema present. Full range of motion intact radial and pedal pulses are normal. Skin: dry and intact without rashes, ulcerations or petechiae. Neuro: Alert and orientated x3, strength is +5/5 in all extremities, sensation to touch intact, no gross deficits noted of cranial nerves. Psych: Patient has a well-kept appearance, appropriate affect, mental status attitude thought context and judgment are appropriate for age. Objective Labs Result Diagrams: 10/11/20 22:45 10/11/20 22:45 Labs: Laboratory Results - last 24 hr 10/11/20 10/11/20 10/11/20 22:07 22:45 22:45 WBC RBC Hgb Hct MCV MCH MCHC RDW Plt Count Neut % (Auto) Lymph % (Auto) Harney % (Auto) Eos % (Auto) Baso % (Auto) Neut # (Auto) Lymph # (Auto) Harney # (Auto) Eos # (Auto) Baso # (Auto) D-Dimer 342 H Sodium Potassium Chloride Carbon Dioxide BUN Creatinine Estimated GFR BUN/Creatinine Ratio Glucose Lactate Calcium Total Bilirubin AST ALT Alkaline Phosphatase Lactate Dehydrogenase Total Creatine Kinase Troponin I NT-Pro-B Natriuret Pep Total Protein Albumin Globulin Albumin/Globulin Ratio Procalcitonin 0.20 SARS-CoV-2 (PCR) Positive H 10/11/20 10/11/20 10/11/20 22:45 22:45 22:45 WBC 7.8 RBC 4.78 Hgb 13.9 Hct 42.1 MCV 88.1 MCH 29.1 MCHC 33.0 RDW 13.1 Plt Count 242 Neut % (Auto) 79.1 H Lymph % (Auto) 10.0 L Harney % (Auto) 8.6 Eos % (Auto) 0.0 L Baso % (Auto) 2.3 H Neut # (Auto) 6200 Lymph # (Auto) 800 L Harney # (Auto) 700 Eos # (Auto) 0 Baso # (Auto) 200 H D-Dimer Sodium 132 L Potassium 3.9 Chloride 98 Carbon Dioxide 23 BUN 16 Creatinine 1.21 Estimated GFR > 60.0 BUN/Creatinine Ratio 13.2 Glucose 111 H Lactate 1.1 Calcium 9.3 Total Bilirubin 1.1 AST 39 ALT 33 Alkaline Phosphatase 80 Lactate Dehydrogenase 632 H Total Creatine Kinase 192 H Troponin I < 0.012 NT-Pro-B Natriuret Pep 35 Total Protein 8.1 Albumin 4.4 Globulin 3.7 Albumin/Globulin Ratio 1.2 Procalcitonin SARS-CoV-2 (PCR) Assessment & Plan Assessment & Plan narrative: 1. Acute COVID 19 viral infection, acute, present on admission [id number] -Diagnosis: 10/12/20, patient is not in acute respiratory failure or hypoxic, on rm air. -Ordered Respiratory panel- QSOFA score 0, blood cultures pending, patient given 10 mg of dexamethasone IV now. -patient to be monitored on tele medicine, vital signs q.4 hours, intake and output monitored Q shift, weight measure daily, diet: Regular -maintain SaO2 greater than 90%, check peak flow expiratory flow q.day 1-2 days. -medications -HELD at this time as patient is not requiring O2. Remdesivir & dexamethasone daily -Consider proning if patient becomes hypoxic -albuterol HFA inhaler 2 puffs every 4-6 hours as needed cough or shortness of breath, LMW heparin 5000 units BID, prednisone 40 mg q.day -labs ordered PT/PTT every other day, troponin repeat, D-dimer and lactate repeat in a.m., CBC and CMP daily, sputum culture, hep B and C, HIV:per guidelines -avoiding nebulizer aerosol treatments, if signs and symptoms are worsening order chest x-ray and echo -monitor patient for acute [place], ischemic stroke, PE, DVT, venous thrombosis, hyperglycemia an increased risk of bacterial infections, fungal and strongyloides -consults ordered physical therapy, respiratory therapy. -prevention vaccine: Recommend yearly flu and COVID vaccine. 2. Essential hypertension, acute on chronic, present on admission -as evidence by BP 166/106, 118 upon admit -patient given initial metoprolol 5 mg IV does to be followed by increased lisinopril 20 mg q.day 3. Obesity as evidence by BMI 33.7, acute on chronic, present on admission -consideration will be given to dietary counseling Code status: Full code Surrogate decision maker:Jemima Copeland -Brother COVID PCR: Positive COVID vaccination: Not obtained VTE/DVT prophylaxis: LMW heparin 5000 units and SCDs Estimated length of stay: Greater than 2 midnights Scores GCS [place] coma scale eye opening: Spontaneous Louis coma scale verbal response: Orientated [place] coma scale motor response: Obey commands Louis coma scale total score: 15 SOFA PaO2/FIO2: >=400 mmHg Platelets: >= 150 Bilirubin: < 1.2 mg/dL Hypotension: MAP >= 70 mmHg Louis Coma Scale: 15 Renal: < 1.2 mg/dL SOFA Score: 0 Wells' Criteria for PE Clinical signs and symptoms of DVT: No PE is #1 Dx or equally likely: No Heart rate > 100: Yes Immobilization at least 3 days or surg in previous 4 weeks: No History of PE or DVT: No Hemoptysis: No Malignancy w/Treatment within 6 months or palliative: No Wells' PE Score total: 1.5
[2020-10-12 01:02] LABS: C-Reactive Protein Quant 15.8 mg/dL (<1.0)
[2020-10-12] MEDS: SODIUM CHLORIDE 0.9% 1,000 ML 100 ML IV (02:17)
[2020-10-12] MEDS: DEXAMETHASONE 10 MG/ML VIAL IV (02:18)
[2020-10-12] MEDS: HEPARIN 5,000 UNIT/ML VIAL 5000 UNIT SUBCUT ×2 (02:18→08:37)
[2020-10-12] MEDS: METOPROLOL TARTRATE 5 MG/5 ML INJ IV ×2 (02:19→08:37)
[2020-10-12 03:18] LABS: Magnesium 1.8 mg/dL (1.6-2.3)
[2020-10-12] MEDS: ACETAMINOPHEN 325 MG TABLET 650 MG PO ×2 (05:52→14:00)
[2020-10-12 06:37] LABS: Add Manual Diff / Slide Review NO; Basophils Absolute Auto 0 /uL (0-100); Basophils Percent Auto 0.1 % (0-2); Eosinophils Absolute Auto 0 /uL (0-450); Hematocrit 41.5 % (41-53); Hemoglobin 13.8 g/dL (13.5-17.5); Lymphocytes Absolute Auto 300 /uL (1100-4500); Lymphocytes Percent Auto 4.7 % (25-40); Mean Corpuscular HGB Conc 33.2 % (30-36); Mean Corpuscular Hemoglobin 29.6 PG (26-34); Mean Corpuscular Volume 89.2 fL (80-100); Monocytes Absolute Auto 300 /uL (0-900); Monocytes Percent Auto 3.9 % (3-14); Neutrophils Absolute Auto 6300 /uL (1500-7000); Neutrophils Percent Auto 91.3 % (50-75); Platelet Count 242 X10^3/uL (150-400); Red Blood Cell Count 4.65 X10^6/uL (4.5-5.9); Red Cell Distribution Width 12.8 % (11.6-14.8)
[2020-10-12 06:39] LABS: INR 1.3 (0.9-1.3); Prothrombin Time 14.7 SECONDS (10.1-12.7)
[2020-10-12 06:47] LABS: Blood Urea Nitrogen 14 mg/dL (9-20); Calcium 9.2 mg/dL (8.4-10.2); Carbon Dioxide 25 mmol/L (22-32); Chloride 100 mmol/L (98-107); Estimated Glomerular Filt Rate > 60.0 mL/min (>60); Glucose 129 mg/dL (70-100); HEMOLYSIS < 15 (0-50); Lactate (Lactic Acid) 0.8 mmol/L (0.7-2.1); Potassium 4.7 mmol/L (3.4-5.1); Sodium 133 mmol/L (137-145)
[2020-10-12 06:56] LABS: D Dimer 371 ng/mL (<230)
[2020-10-12 06:59] LABS: Troponin I < 0.012 ng/mL (0.01-0.034)
[2020-10-12] MEDS: lisinopriL 20 MG TABLET PO (08:39)
[2020-10-12 10:34] LABS: Adenovirus Not Detected (Not Detect); SARS- CoV-2 Detected (Not Detecte)
[2020-10-12 10:35] LABS: B. parapertussis Not Detected (Not Detecte); Bordetella pertussis Not Detected (Not Detecte); Chlamydophila pneumoniae Not Detected (Not Detect); Coronavirus 229E Not Detected (Not Detect); Coronavirus HKU1 Not Detected (Not Detect); Coronavirus NL 63 Not Detected (Not Detect); Coronavirus OC43 Not Detected (Not Detect); Human Metapneumovirus Not Detected (Not Detect); Human Rhinovirus/Enterovirus Not Detected (Not Detect); Influenza A Not Detected (Not Detect); Influenza B Not Detected (Not Detect); Mycoplasma pneumoniae Not Detected (Not Detect); Parainfluenza Virus 1 Not Detected (Not Detect); Parainfluenza Virus 2 Not Detected (Not Detect); Parainfluenza Virus 3 Not Detected (Not Detect); Parainfluenza Virus 4 Not Detected (Not Detect); Respiratory Syncytial Virus Not Detected (Not Detect)
--- NOTE | 2020-10-12 10:49 | PT-IP ANOTE ---
talked with nurse and stated that pt is independent with mobility in room and will not need PT. Talked to the doctor and agreed to d/c PT eval order.
--- NOTE | 2020-10-12 13:02 | CM.MNRNOTE ---
Addendum entered by Kaylene Stephen R.N. 10/12/20 15:20: Patient given discharge instructions regarding medication, s/s of worsening condition and precautions following discharge. Patient verbalized understanding. Patient called for a ride but would like to leave now, reports he is feeling cooped up. Prescription given, belongings including cellphone, gathered. Patient given extra masks. Patient discharged via wheelchair with aide assist. Original Note: Patient A/O x 3. Ambulating in room independently. Denies SOB or increased WOB with activity. Lungs CTA, 99% on RA. Endorses feeling general fatigue. Noted HTN, MD aware. Patient denied pain. Voiding in urinal without difficulty, reports last BM 10/10. BT active x 4. Patient denies chest pain. Tele remained on this AM, removed for D/C. Pulses equal, no edema noted bilaterally. Refusing SCD's d/t activity. Patient's IV removed for discharge. Patient tolerated. Call light in reach.
--- NOTE | 2020-10-12 13:17 | CM.DANOTE ---
DCP: Case received, EMR reviewed. Attempted to reach patient, but he did not answer his phone in his room, and did not answer his cell phone. Was able to go ahead and complete DCP assessment based on information in patient's chart. Was also able to get information from his primary care nurse, Kaylene. DCP assessment completed based on information currently available. Patient is a 45 year old male who admitted early this morning to the care of the hospitalist team. PCP: Undetermined. Payer: Confirmed: [employer]/Medicaid. Patient came to the hospital via private vehicle secondary to having increased shortness of breath, as well as coughing. Patient was diagnosed as being positive for COVID. According to notes, patient is homeless, but [place]. He was exposed by two other individuals, and not vaccinated. Patient also has history of methamphetamine use, marijuana, as well as heroine. According to nurse, Kaylene, patient stated, he has not used substances in the last week. P: Patient has discharge orders for today. Consulted with GAURAV Casillas, today, and she indicated that on a week-end, most likely can't get in touch with health department as far as hot. At this point, [place], and will need to work on isolation and attempt getting vacinne. Kaylene will be discussing with patient. Earnestine Lux RN/Art Therapist
--- NOTE | 2020-10-12 17:02 | PM.DS.1 ---
History of Present Illness History of Present Illness Chief complaint: EXPOSED TO COVID FATIGUE SOB DEEP CHEST COUGH DEHY Narrative: Per Kiramichelle Figueredo: Patient is a 45-year-old male Farhad Copeland who presented to the ED this evening for 4 days of consistent and worsening fatigue body aches, shortness of breath chills diaphoresis, worsening with activity. Patient states that he was exposed to 2 people a couple days ago that were both Covid positive, he has not received the vaccine. He also complains of a mild headache, nausea, no vomiting but he has not been eating decreased appetite, he has felt feverish and diaphoretic and has chest pain with deep breathing & cough. He has ear pressure changes with coughing some mild nasal drainage and a productive cough. Patient denies any respiratory or cardiac history. Patient admit exam done in ED patient was not on oxygen and was satting at 96% on room air in no distress at that time although appeared moderately ill. The patient states his only medical history is hypertension of which she takes lisinopril for denies all other history. Patient states he has no medication allergies except for a possible blood pressure med which he cannot recall. The patient is homeless and sleeps in a camp he is a smoker times 20 years rarely drinks alcohol and occasionally uses marijuana methamphetamines and or heroin. Patient states that he has not used any recreational substances within the past week. Upon admit patient's vitals demonstrated that he was slightly hypertensive with a BP 152/99, tachycardic HR 118, tachypneic RR 27, again not on oxygen O2 saturation 96% on room air. Patient was unable to speak in full complete sentences without shortness of breath or work of breathing. Patient's CBC was unremarkable, patient did have hyponatremia with a sodium of 132, lactate D 632, total creatinine kinase 192, initial troponin< 0.012, CRP is pending, BNP 35, and procalcitonin 0.20. Patient's chest x-ray demonstrated no acute cardiopulmonary findings. Patient will be admitted for COVID-19 infection. Discharge Providers Provider Date of admission: 10/12/20 00:09 Discharge Date: 10/12/20 Consults: 10/12/20 00:18 Consult to Physical Therapy Evaluate & Treat Comment: Covid Physician Instructions: Evaluate and Treat 10/12/20 00:20 Consult to Respiratory Therapy Evaluate & Treat Comment: Covid Physician Instructions: Evaluate and treat Discharge provider: Denis Merrill MD Summary Hospital Course Discharge Diagnosis: 1. Acute COVID pneumonia 2. Hypertension 3. Obesity, BMI 33.7 Hospital Course: Mr. Copeland was admitted overnight due to cough and shortness of breath. He was found to be COVID positive. He had not had a vaccination. He is currently homeless. He never required oxygen, and he felt improved in the morning so he was discharged. He was given a script for hypertension, as he had run out of his medications. Case management attempted to find temporary housing, but they could not. He was discharged with recommendation to continue isolation, wear a mask, and receive a COVID vaccination once his symptoms resolved. Exam Vital Signs (past 8 hours): - 10/12/20 09:35 10/12/20 13:08 Temperature 97.2 F L Pulse Rate 85 93 H Respiratory Rate 14 Blood Pressure 154/96 H 158/111 H Pulse Oximetry 99 98 Oxygen Delivery Method Room Air Oxygen Flow Rate 0 Narrative Exam Narrative: General: no acute distress Lungs: clear bilaterally with no wheezes, rhonchi, rales Cardio: regular rate and rhythm without murmur Abdomen: Soft nontender, negative for organomegaly, or masses. Normal bowel sounds Musculoskeletal: Muscle strength and tone are equal within normal limits Skin: dry and intact without rashes Neuro: Alert and orientated x3, strength is +5/5 in all extremities, Objective Labs Result Diagrams: 10/12/20 06:10 10/12/20 06:10 Labs: Laboratory Results - last 24 hr 10/11/20 10/11/20 10/11/20 22:07 22:45 22:45 WBC RBC Hgb Hct MCV MCH MCHC RDW Plt Count Neut % (Auto) Lymph % (Auto) [place] % (Auto) Eos % (Auto) Baso % (Auto) Neut # (Auto) Lymph # (Auto) [place] # (Auto) Eos # (Auto) Baso # (Auto) PT INR D-Dimer 342 H Sodium Potassium Chloride Carbon Dioxide BUN Creatinine Estimated GFR BUN/Creatinine Ratio Glucose Lactate Calcium Magnesium Total Bilirubin AST ALT Alkaline Phosphatase Lactate Dehydrogenase Total Creatine Kinase CK-MB (CK-2) CK-MB (CK-2) Rel Index Troponin I C-Reactive Protein NT-Pro-B Natriuret Pep Total Protein Albumin Globulin Albumin/Globulin Ratio Procalcitonin 0.20 Chlamy pneumoniae PCR Adenovirus (PCR) B. pertussis DNA (PCR) B.parapertussis DNA PCR Coronavirus OC43 (PCR) Coronavirus HKU1 (PCR) Coronavirus 229E (PCR) SARS-CoV-2 (PCR) Positive H Coronavirus NL63 (PCR) Human Metapneumovir PCR Influenza Type A (PCR) Influenza Type B (PCR) M. pneumoniae (PCR) Parainfluenza 1 (PCR) Parainfluenza 2 (PCR) Parainfluenza 3 (PCR) Parainfluenza 4 (PCR) RSV (PCR) Entero/Rhino (PCR) 10/11/20 10/11/20 10/11/20 22:45 22:45 22:45 WBC 7.8 RBC 4.78 Hgb 13.9 Hct 42.1 MCV 88.1 MCH 29.1 MCHC 33.0 RDW 13.1 Plt Count 242 Neut % (Auto) 79.1 H Lymph % (Auto) 10.0 L [place] % (Auto) 8.6 Eos % (Auto) 0.0 L Baso % (Auto) 2.3 H Neut # (Auto) 6200 Lymph # (Auto) 800 L [place] # (Auto) 700 Eos # (Auto) 0 Baso # (Auto) 200 H PT INR D-Dimer Sodium 132 L Potassium 3.9 Chloride 98 Carbon Dioxide 23 BUN 16 Creatinine 1.21 Estimated GFR > 60.0 BUN/Creatinine Ratio 13.2 Glucose 111 H Lactate 1.1 Calcium 9.3 Magnesium Total Bilirubin 1.1 AST 39 ALT 33 Alkaline Phosphatase 80 Lactate Dehydrogenase 632 H Total Creatine Kinase 192 H CK-MB (CK-2) 1.00 CK-MB (CK-2) Rel Index 0.5 L Troponin I < 0.012 C-Reactive Protein 15.8 H NT-Pro-B Natriuret Pep 35 Total Protein 8.1 Albumin 4.4 Globulin 3.7 Albumin/Globulin Ratio 1.2 Procalcitonin Chlamy pneumoniae PCR Adenovirus (PCR) B. pertussis DNA (PCR) B.parapertussis DNA PCR Coronavirus OC43 (PCR) Coronavirus HKU1 (PCR) Coronavirus 229E (PCR) SARS-CoV-2 (PCR) Coronavirus NL63 (PCR) Human Metapneumovir PCR Influenza Type A (PCR) Influenza Type B (PCR) M. pneumoniae (PCR) Parainfluenza 1 (PCR) Parainfluenza 2 (PCR) Parainfluenza 3 (PCR) Parainfluenza 4 (PCR) RSV (PCR) Entero/Rhino (PCR) 10/11/20 10/12/20 10/12/20 22:45 06:10 06:10 WBC 7.0 RBC 4.65 Hgb 13.8 Hct 41.5 MCV 89.2 MCH 29.6 MCHC 33.2 RDW 12.8 Plt Count 242 Neut % (Auto) 91.3 H Lymph % (Auto) 4.7 L [place] % (Auto) 3.9 Eos % (Auto) 0.0 L Baso % (Auto) 0.1 Neut # (Auto) 6300 Lymph # (Auto) 300 L [place] # (Auto) 300 Eos # (Auto) 0 Baso # (Auto) 0 PT 14.7 H INR 1.3 D-Dimer Sodium Potassium Chloride Carbon Dioxide BUN Creatinine Estimated GFR BUN/Creatinine Ratio Glucose Lactate Calcium Magnesium 1.8 Total Bilirubin AST ALT Alkaline Phosphatase Lactate Dehydrogenase Total Creatine Kinase CK-MB (CK-2) CK-MB (CK-2) Rel Index Troponin I C-Reactive Protein NT-Pro-B Natriuret Pep Total Protein Albumin Globulin Albumin/Globulin Ratio Procalcitonin Chlamy pneumoniae PCR Adenovirus (PCR) B. pertussis DNA (PCR) B.parapertussis DNA PCR Coronavirus OC43 (PCR) Coronavirus HKU1 (PCR) Coronavirus 229E (PCR) SARS-CoV-2 (PCR) Coronavirus NL63 (PCR) Human Metapneumovir PCR Influenza Type A (PCR) Influenza Type B (PCR) M. pneumoniae (PCR) Parainfluenza 1 (PCR) Parainfluenza 2 (PCR) Parainfluenza 3 (PCR) Parainfluenza 4 (PCR) RSV (PCR) Entero/Rhino (PCR) 10/12/20 10/12/20 10/12/20 06:10 06:10 06:10 WBC RBC Hgb Hct MCV MCH MCHC RDW Plt Count Neut % (Auto) Lymph % (Auto) [place] % (Auto) Eos % (Auto) Baso % (Auto) Neut # (Auto) Lymph # (Auto) [place] # (Auto) Eos # (Auto) Baso # (Auto) PT INR D-Dimer Sodium 133 L Potassium 4.7 Chloride 100 Carbon Dioxide 25 BUN 14 Creatinine 1.00 Estimated GFR > 60.0 BUN/Creatinine Ratio 14.0 Glucose 129 H Lactate 0.8 Calcium 9.2 Magnesium Total Bilirubin AST ALT Alkaline Phosphatase Lactate Dehydrogenase Total Creatine Kinase CK-MB (CK-2) CK-MB (CK-2) Rel Index Troponin I < 0.012 C-Reactive Protein NT-Pro-B Natriuret Pep Total Protein Albumin Globulin Albumin/Globulin Ratio Procalcitonin Chlamy pneumoniae PCR Adenovirus (PCR) B. pertussis DNA (PCR) B.parapertussis DNA PCR Coronavirus OC43 (PCR) Coronavirus HKU1 (PCR) Coronavirus 229E (PCR) SARS-CoV-2 (PCR) Coronavirus NL63 (PCR) Human Metapneumovir PCR Influenza Type A (PCR) Influenza Type B (PCR) M. pneumoniae (PCR) Parainfluenza 1 (PCR) Parainfluenza 2 (PCR) Parainfluenza 3 (PCR) Parainfluenza 4 (PCR) RSV (PCR) Entero/Rhino (PCR) 10/12/20 10/12/20 06:10 09:10 WBC RBC Hgb Hct MCV MCH MCHC RDW Plt Count Neut % (Auto) Lymph % (Auto) [place] % (Auto) Eos % (Auto) Baso % (Auto) Neut # (Auto) Lymph # (Auto) [place] # (Auto) Eos # (Auto) Baso # (Auto) PT INR D-Dimer 371 H Sodium Potassium Chloride Carbon Dioxide BUN Creatinine Estimated GFR BUN/Creatinine Ratio Glucose Lactate Calcium Magnesium Total Bilirubin AST ALT Alkaline Phosphatase Lactate Dehydrogenase Total Creatine Kinase CK-MB (CK-2) CK-MB (CK-2) Rel Index Troponin I C-Reactive Protein NT-Pro-B Natriuret Pep Total Protein Albumin Globulin Albumin/Globulin Ratio Procalcitonin Chlamy pneumoniae PCR Not detected Adenovirus (PCR) Not detected B. pertussis DNA (PCR) Not detected B.parapertussis DNA PCR Not detected Coronavirus OC43 (PCR) Not detected Coronavirus HKU1 (PCR) Not detected Coronavirus 229E (PCR) Not detected SARS-CoV-2 (PCR) Detected H Coronavirus NL63 (PCR) Not detected Human Metapneumovir PCR Not detected Influenza Type A (PCR) Not detected Influenza Type B (PCR) Not detected M. pneumoniae (PCR) Not detected Parainfluenza 1 (PCR) Not detected Parainfluenza 2 (PCR) Not detected Parainfluenza 3 (PCR) Not detected Parainfluenza 4 (PCR) Not detected RSV (PCR) Not detected Entero/Rhino (PCR) Not detected PFSH Medical History History of substance abuse HTN (hypertension) Obesity (BMI 30.0-34.9) Tobacco abuse Surgical History Status post hernia repair Status post total knee replacement, right Family History (Updated 10/12/20 @ 00:31 by TOMY Freitas-ZACK) Mother Hypertension Diabetes mellitus Father Hypertension Diabetes mellitus Social History household members: none Smoking Status: Current every day smoker alcohol intake: current Discharge Plan Discharge Plan Patient Disposition: Home Provider Discharge Comment: Mr. Copeland came in with cough and shortness of breath. He was found to have COVID pneumonia and high blood pressure. He did not have any of his home medication, so was given a refill at a higher dose. He should avoid interacting with people for at least 10 days after leaving the hospital through 10/22, and make sure at least 3 days of no cough and shortness of breath. Please get your COVID vaccine once you improve. Case management has attempted to get you housing Discharge orders & Medications Prescriptions: New lisinopril 20 mg Tablet 20 mg PO DAILY Qty: 30 RF: 0 Discontinued lisinopril 5 mg Tablet 5 mg PO QAM RF: 0 Diet/Activity/Treatments Diet: Regular Visit Report/Discharge Packet Instructions: Treatments for High Blood Pressure: More Than Just Taking a Pill, DI for Heart Failure Quality VTE Deep Vein Thrombosis/Pulmonary Embolism Present on Admission: Yes MIPS - DC The patient has current or prior documentation of left ventricular ejection fraction (LVEF) less than 40%, or moderate or severely depressed left ventricular systolic function.: No
[2020-10-13 08:44] LABS: HBsAg Screen Negative (Negative); Hepatitis A Antibody IgM Negative (Negative); Hepatitis B Core Antibody IgM Negative (Negative); Hepatitis C Antibody 0.1 s/co ratio (0.0-0.9)
[2020-10-13 12:23] LABS: HIV 1 & 2 Ab/Ag 4th Gen Combo NEGATIVE (NEGATIVE)
== END 2020-10-12 13:15 | disposition home or self-care (01) ==
LOC: ED 22:48 → AC 10-12 00:10
PROVIDERS: Admitting Provider Nurse Practitioner Family; Emergency Provider Emergency Medicine; Referring Provider Emergency Medicine; Visit Provider Nurse Practitioner Family
DX: U07.1 COVID-19 (principal); J12.82 Pneumonia due to coronavirus disease 2019; I10 Essential (primary) hypertension; E66.9 Obesity, unspecified; F19.11 Other psychoactive substance abuse, in remission; F17.210 Nicotine dependence, cigarettes, uncomplicated; Z59.0 Homelessness; Z68.33 Body mass index [BMI] 33.0-33.9, adult
CPT/HCPCS: 36415; 71045; 80048; 80053; 80074; 82550; 82553; 83605; 83615; 83735; 83880; 84145; 84484; 85025; 85379; 85610; 86140; 87040; 87389; 87633; 87635; 96361; 96372; 96374; 96375; 96376; 99284; C9803; G0378; A9270; J1100; J1644

== ENCOUNTER 2022-03-14 17:42 | Emergency (ER) | payer OTHER, MEDICAID, SELFPAY ==
[2020-10-12 03:02] VITALS: BMI 36.1
[2022-03-14] VITALS (13 sets, daily range): BP systolic 144–166; BP diastolic 86–120; PULSE 84–117; RESP 17–29; TEMP 36.7–36.8; O2SAT 97–99; BMI 33.7
--- NOTE | 2022-03-14 18:10 | DI.RAD.S_ITS ---
PROCEDURE: XR CHEST 1V INDICATIONS: chest pain TECHNIQUE: One view of the chest was acquired. COMPARISON: [facility], CR, XR CHEST 1V, 10/11/2020, 22:12. FINDINGS: Surgical changes and devices: None. Lungs and pleura: Minimal left basilar opacities present.. No pleural effusions or pneumothorax. Mediastinum: Mediastinal contours appear normal. Heart size is normal. Bones and chest wall: No suspicious bony lesions. Overlying soft tissues appear unremarkable. IMPRESSION: Minimal left basilar opacity present, could represent atelectasis but aspiration or pneumonia are difficult to exclude. Dictated by: Jeremy Villasenor M.D. on 03/14/2022 at 19:42 Approved by: Jeremy Villasenor M.D. on 03/14/2022 at 19:43
--- NOTE | 2022-03-14 18:14 | ED.EXTPRO ---
HPI - Extremity Problem General Chief complaint: Extremity Problem,Nontraumatic Stated complaint: Leg swelling, Something going around man parts Time Seen by Provider: 03/14/22 18:08 Source: patient Mode of arrival: Wheelchair Limitations: no limitations History of Present Illness HPI Narrative: This is a 46-year-old male with history of hypertension on lisinopril with complaint of bilateral leg swelling and bumps on his genitals. Patient states he is had this problem once before. Patient states swelling has been going on for about a week he states his legs are painful tight and it is becoming increasing difficult to ambulate. Patient denies chest pain, no shortness of breath, no orthopnea. No fevers or chills. No cold, cough, congestion. No fevers or chills. No nausea or vomiting. Patient states he was constipated but then improved. Patient denies any dysuria urgency frequency. Patient states he is noticed he has been peeing a little bit more. He states he has had some bumps in the groin area bilaterally he states they are a little burning. He states bumps been present for about a week. Is sexually active. He denies any discharge from the penis, no testicular pain. Patient states he is supposed to be on lisinopril but ran out 1-2 weeks ago, he states it is only surgeries are right knee replacement. No known drug allergies. He states occasional cigarettes. He denies alcohol, states stopped using methamphetamines, and fentanyl about 2 weeks ago. He states he was using marijuana as well before. Denies any IV or injecting of illicit substances. Patient does not have a primary care physician. Related Data Previous Rx's Medication Instructions Recorded lisinopril 20 mg tablet 20 mg PO DAILY #30 tabs 10/12/20 furosemide 40 mg tablet (Lasix) 40 mg PO DAILY #7 tabs 03/14/22 lisinopril 20 mg tablet 20 mg PO DAILY #30 tabs 03/14/22 Allergies Allergy/AdvReac Type Severity Reaction Status Date / Time No Known Drug Allergies Allergy Verified 10/11/20 22:03 Review of Systems Review of Systems ROS Unobtainable: All systems reviewed & are unremarkable except as noted in HPI and below Patient History Medical History History of substance abuse HTN (hypertension) Obesity (BMI 30.0-34.9) Tobacco abuse Surgical History Status post hernia repair Status post total knee replacement, right Family History Mother Hypertension Diabetes mellitus Father Hypertension Diabetes mellitus Social History household members: none Smoking Status: Current every day smoker alcohol intake: current Smoking Status: Current every day smoker alcohol intake frequency: a few times a month Substance Use Type: former substance user, marijuana, painkillers and methamphetamine Exam Narrative Exam Narrative: GENERAL: Alert and oriented x three, mild distress. HEENT: Head normocephalic, atraumatic, EOMI, pupils reactive, face symmetric, moist mucous membranes NECK: Supple, full range of motion CARDIOVASCULAR: Regular rate and rhythm without murmurs, rubs or gallops. + JVD, 2+ swelling bilateral lower extremity swelling. RESPIRATORY: Breath sounds equal bilaterally, no wheezes rales or rhonchi. No tachypnea or accessory muscle use. ABDOMEN: Soft, nontender. Normoactive bowel sounds all 4 quadrants. No guarding or rebound, rigidity, no mass : No CVA tenderness. Male: normal external examination the exception of large nodules consistent likely with warts in the right and left groin, they appear external to the outer edge of the skin and not deep, there is no ulcerations, patient has sort of a hyperpigmented business operations analyst coloration lesions are the bilateral inguinal area in the pubic hair region, no nodules appreciated on the testicles or penis., no penile discharge or lesions, testicles non-tender, cremasteric reflex intact, no inguinal hernias noted. EXTREMITIES: Normal range of motion, no clubbing. Neurovascularly intact NEUROLOGICAL: Cranial nerves II through XII grossly intact. Moving all extremities SKIN: Warm, dry, no petechiae, no rashes or lesions. Initial Vital Signs Initial Vital Signs: Vital Signs Temperature 98.1 F 03/14/22 17:59 Pulse Rate 117 H 03/14/22 17:59 Respiratory Rate 24 03/14/22 17:59 Blood Pressure 158/120 H 03/14/22 17:59 Pulse Oximetry 99 03/14/22 17:59 Oxygen Delivery Method 03/14/22 17:59 Course Orders Ordered: ED Orders 03/14/22 22:19 Consult to BRAZING MACHINE OPERATOR AUTOMATIC - Social Science Manager Stat Discontinued Medications Furosemide (Furosemide 40 Mg/4 Ml Vial) 40 mg IV NOW ONE Stop: 03/14/22 18:26 Last Admin: 03/14/22 18:54 Dose: 40 mg Documented By: NR Vital Signs Vital signs: Vital Signs - 8 hr 03/14/22 22:00 03/14/22 22:27 Temperature 98.2 F Pulse Rate 107 H 84 Respiratory Rate 20 18 Blood Pressure 144/86 H Pulse Oximetry 97 Oxygen Delivery Method Room Air MDM - Extremity (Nontraumatic) Lab Data Result diagrams: 03/14/22 18:30 03/14/22 18:30 Labs: Lab Results 03/14/22 03/14/22 03/14/22 Range/Units 18:30 18:30 18:30 WBC 7.5 (4.5-11.0) X10^3/uL RBC 3.60 L (4.5-5.9) X10^6/uL Hgb 10.0 L (13.5-17.5) g/dL Hct 30.7 L (41-53) % MCV 85.2 (80-100) fL MCH 27.7 (26-34) PG MCHC 32.4 (30-36) % RDW 14.9 H (11.6-14.8) % Plt Count 426 H (150-400) X10^3/uL Neut % (Auto) 76.6 H (50-75) % Lymph % (Auto) 10.6 L (25-40) % [place] % (Auto) 10.2 (3-14) % Eos % (Auto) 1.9 L (2-4) % Baso % (Auto) 0.7 (0-2) % Neut # (Auto) 5800 (1714-3804) /uL Lymph # (Auto) 800 L (3242-0379) /uL [place] # (Auto) 800 (0-900) /uL Eos # (Auto) 100 (0-450) /uL Baso # (Auto) 100 (0-100) /uL PT 12.6 (10.1-12.7) SECONDS INR 1.1 (0.9-1.3) APTT 35 (26-36) SECONDS Sodium 135 L (137-145) mmol/L Potassium 4.0 (3.4-5.1) mmol/L Chloride 98 (98-107) mmol/L Carbon Dioxide 32 (22-32) mmol/L BUN 12 (9-20) mg/dL Creatinine 0.93 (0.66-1.25) mg/dL Estimated GFR > 60 (>60) mL/min BUN/Creatinine Ratio 12.9 (6-22) Glucose 96 (70-100) mg/dL Calcium 8.6 (8.4-10.2) mg/dL Magnesium 2.1 (1.6-2.3) mg/dL Total Bilirubin 0.4 (0.2-1.3) mg/dL AST 26 (17-59) IU/L ALT 20 (<50) IU/L Alkaline Phosphatase 120 (38-126) U/L Total Creatine Kinase 125 (55-170) U/L CK-MB (CK-2) 1.30 (<2.37) ng/mL CK-MB (CK-2) Rel Index 1.0 L (1.5-5.0) % Troponin I < 0.012 (0.01-0.034) ng/mL NT-Pro-B Natriuret Pep (<125) pg/mL Total Protein 8.9 H (6.3-8.2) g/dL Albumin 3.8 (3.5-5.0) g/dL Globulin 5.1 H (1.7-4.1) g/dL Albumin/Globulin Ratio 0.7 L (1.0-2.8) Lipase 41 (23-300) U/L Urine Color Urine Appearance Urine pH (4.5-8.0) Ur Specific [place] (1.000-1.035) Urine Protein (Negative) Urine Glucose (UA) (Negative) g/dL Urine Ketones (NEGATIVE) Urine Occult Blood (Negative) Urine Nitrate (Negative) Urine Bilirubin (NEGATIVE) Urine Urobilinogen (0.2) E.U./dL Ur Leukocyte Esterase (NEGATIVE) Urine RBC (0-5/HPF) Urine WBC (0-5/HPF) Ur Squamous Epith Cells (0-5/HPF) Urine Bacteria (None) Ur Culture Indicated? U Opiates 300ng/mL cut (Negative) Ur Oxycodone Screen (Negative) Urine Methadone Screen (Negative) Ur Barbiturates Screen (Negative) U Tricyclic Antidepress (Negative) Ur Phencyclidine Scrn (Negative) Ur Amphetamines Screen (Negative) U Methamphetamines Scrn (Negative) Ur MDMA Scrn (Ecstasy) (Negative) U Benzodiazepines Scrn (Negative) Urine Cocaine Screen (Negative) U Marijuana (THC) Screen (Negative) Ur Chlamydia DNA (PCR) SARS-CoV-2 (PCR) (Negative) HIV 1&2 Ab/P24 Ag 4thGn (NEGATIVE) Influenza A (RT-PCR) (NEGATIVE) Influenza B (RT-PCR) (NEGATIVE) N gonorrhoeae DNA (PCR) 03/14/22 03/14/22 03/14/22 Range/Units 18:30 18:30 18:53 WBC (4.5-11.0) X10^3/uL RBC (4.5-5.9) X10^6/uL Hgb (13.5-17.5) g/dL Hct (41-53) % MCV (80-100) fL MCH (26-34) PG MCHC (30-36) % RDW (11.6-14.8) % Plt Count (150-400) X10^3/uL Neut % (Auto) (50-75) % Lymph % (Auto) (25-40) % [place] % (Auto) (3-14) % Eos % (Auto) (2-4) % Baso % (Auto) (0-2) % Neut # (Auto) (6174-8373) /uL Lymph # (Auto) (4633-7012) /uL [place] # (Auto) (0-900) /uL Eos # (Auto) (0-450) /uL Baso # (Auto) (0-100) /uL PT (10.1-12.7) SECONDS INR (0.9-1.3) APTT (26-36) SECONDS Sodium (137-145) mmol/L Potassium (3.4-5.1) mmol/L Chloride (98-107) mmol/L Carbon Dioxide (22-32) mmol/L BUN (9-20) mg/dL Creatinine (0.66-1.25) mg/dL Estimated GFR (>60) mL/min BUN/Creatinine Ratio (6-22) Glucose (70-100) mg/dL Calcium (8.4-10.2) mg/dL Magnesium (1.6-2.3) mg/dL Total Bilirubin (0.2-1.3) mg/dL AST (17-59) IU/L ALT (<50) IU/L Alkaline Phosphatase (38-126) U/L Total Creatine Kinase (55-170) U/L CK-MB (CK-2) (<2.37) ng/mL CK-MB (CK-2) Rel Index (1.5-5.0) % Troponin I (0.01-0.034) ng/mL NT-Pro-B Natriuret Pep 137 H (<125) pg/mL Total Protein (6.3-8.2) g/dL Albumin (3.5-5.0) g/dL Globulin (1.7-4.1) g/dL Albumin/Globulin Ratio (1.0-2.8) Lipase (23-300) U/L Urine Color Urine Appearance Urine pH (4.5-8.0) Ur Specific [place] (1.000-1.035) Urine Protein (Negative) Urine Glucose (UA) (Negative) g/dL Urine Ketones (NEGATIVE) Urine Occult Blood (Negative) Urine Nitrate (Negative) Urine Bilirubin (NEGATIVE) Urine Urobilinogen (0.2) E.U./dL Ur Leukocyte Esterase (NEGATIVE) Urine RBC (0-5/HPF) Urine WBC (0-5/HPF) Ur Squamous Epith Cells (0-5/HPF) Urine Bacteria (None) Ur Culture Indicated? U Opiates 300ng/mL cut (Negative) Ur Oxycodone Screen (Negative) Urine Methadone Screen (Negative) Ur Barbiturates Screen (Negative) U Tricyclic Antidepress (Negative) Ur Phencyclidine Scrn (Negative) Ur Amphetamines Screen (Negative) U Methamphetamines Scrn (Negative) Ur MDMA Scrn (Ecstasy) (Negative) U Benzodiazepines Scrn (Negative) Urine Cocaine Screen (Negative) U Marijuana (THC) Screen (Negative) Ur Chlamydia DNA (PCR) SARS-CoV-2 (PCR) Negative (Negative) HIV 1&2 Ab/P24 Ag 4thGn Negative (NEGATIVE) Influenza A (RT-PCR) Flu a negative (NEGATIVE) Influenza B (RT-PCR) Flu b negative (NEGATIVE) N gonorrhoeae DNA (PCR) 03/14/22 03/14/22 03/14/22 Range/Units 19:17 19:17 19:17 WBC (4.5-11.0) X10^3/uL RBC (4.5-5.9) X10^6/uL Hgb (13.5-17.5) g/dL Hct (41-53) % MCV (80-100) fL MCH (26-34) PG MCHC (30-36) % RDW (11.6-14.8) % Plt Count (150-400) X10^3/uL Neut % (Auto) (50-75) % Lymph % (Auto) (25-40) % [place] % (Auto) (3-14) % Eos % (Auto) (2-4) % Baso % (Auto) (0-2) % Neut # (Auto) (9612-2191) /uL Lymph # (Auto) (6900-2286) /uL [place] # (Auto) (0-900) /uL Eos # (Auto) (0-450) /uL Baso # (Auto) (0-100) /uL PT (10.1-12.7) SECONDS INR (0.9-1.3) APTT (26-36) SECONDS Sodium (137-145) mmol/L Potassium (3.4-5.1) mmol/L Chloride (98-107) mmol/L Carbon Dioxide (22-32) mmol/L BUN (9-20) mg/dL Creatinine (0.66-1.25) mg/dL Estimated GFR (>60) mL/min BUN/Creatinine Ratio (6-22) Glucose (70-100) mg/dL Calcium (8.4-10.2) mg/dL Magnesium (1.6-2.3) mg/dL Total Bilirubin (0.2-1.3) mg/dL AST (17-59) IU/L ALT (<50) IU/L Alkaline Phosphatase (38-126) U/L Total Creatine Kinase (55-170) U/L CK-MB (CK-2) (<2.37) ng/mL CK-MB (CK-2) Rel Index (1.5-5.0) % Troponin I (0.01-0.034) ng/mL NT-Pro-B Natriuret Pep (<125) pg/mL Total Protein (6.3-8.2) g/dL Albumin (3.5-5.0) g/dL Globulin (1.7-4.1) g/dL Albumin/Globulin Ratio (1.0-2.8) Lipase (23-300) U/L Urine Color Yellow Urine Appearance Clear Urine pH 7.0 (4.5-8.0) Ur Specific [place] 1.010 (1.000-1.035) Urine Protein Negative (Negative) Urine Glucose (UA) Negative (Negative) g/dL Urine Ketones Negative (NEGATIVE) Urine Occult Blood Negative (Negative) Urine Nitrate Negative (Negative) Urine Bilirubin Negative (NEGATIVE) Urine Urobilinogen 0.2 (0.2) E.U./dL Ur Leukocyte Esterase Negative (NEGATIVE) Urine RBC 1-5/hpf (0-5/HPF) Urine WBC 0-1/hpf (0-5/HPF) Ur Squamous Epith Cells None seen (0-5/HPF) Urine Bacteria Occasional (0-1) (None) Ur Culture Indicated? Cult not indicated U Opiates 300ng/mL cut Negative (Negative) Ur Oxycodone Screen Negative (Negative) Urine Methadone Screen Negative (Negative) Ur Barbiturates Screen Negative (Negative) U Tricyclic Antidepress Negative (Negative) Ur Phencyclidine Scrn Negative (Negative) Ur Amphetamines Screen Positive H (Negative) U Methamphetamines Scrn Positive H (Negative) Ur MDMA Scrn (Ecstasy) Negative (Negative) U Benzodiazepines Scrn Negative (Negative) Urine Cocaine Screen Negative (Negative) U Marijuana (THC) Screen Negative (Negative) Ur Chlamydia DNA (PCR) Not detected SARS-CoV-2 (PCR) (Negative) HIV 1&2 Ab/P24 Ag 4thGn (NEGATIVE) Influenza A (RT-PCR) (NEGATIVE) Influenza B (RT-PCR) (NEGATIVE) N gonorrhoeae DNA (PCR) Not detected Urine Dip Bedside Urine Glucose Negative Bedside Urine Bilirubin - Negative Bedside Urine Ketone - Negative Urine Specific [place] 1.015 Bedside Urine Occult Blood - Negative Bedside Urine pH 6.5 Bedside Urine Protein - Negative Bedside Urine Urobilinogen - Negative Bedside Urine Nitrite - Negative Bedside Urine Leukocytes - Negative Esterase Imaging Data Chest x-ray: Radiologist's Impression: Close Chest X-Ray (Signed) Jeremy Villasenor - 03/14/22 Launch?Image [address] [address] XRay Report Signed Patient: Farhad Copeland MR#: [id number] : 1975 Acct:[id number] Age/Sex: 46 / M Date of Service: 03/14/22 Loc: ED Accession Number: [id number] ?? Procedure: XR chest 1V Ordering Provider: Denisa Engel D.O. PROCEDURE:? XR CHEST 1V ? INDICATIONS:? chest pain ? TECHNIQUE:? One view of the chest was acquired.? ? COMPARISON:? [facility], CR, XR CHEST 1V, 10/11/2020, 22:12. ? FINDINGS:? ? Surgical changes and devices:? None.? ? Lungs and pleura:? Minimal left basilar opacities present..? No pleural effusions or pneumothorax.? ? Mediastinum:? Mediastinal contours appear normal.? Heart size is normal.? ? Bones and chest wall:? No suspicious bony lesions.? Overlying soft tissues appear unremarkable.? ? IMPRESSION:? Minimal left basilar opacity present, could represent atelectasis but aspiration or pneumonia are difficult to exclude.? ? ? Dictated by: Jeremy Villasenor M.D. on 03/14/2022 at 19:42 ? ? Approved by: Jeremy Villasenor M.D. on 03/14/2022 at 19:43?? ECG Data Attestation EKG: I personally reviewed and interpreted this ECG as follows: Prior ECG tracings: available for review Interpretation: Normal sinus rhythm right bundle-branch block. Rate of 99, NC 164, QRS of 136 and QTC of 503. Patient has prior did not have right bundle-branch block, and 2020 on EKG no dynamic changes otherwise appreciated. MDM Narrative Medical decision making narrative: This is a 46-year-old male who presents with bilateral lower extremity swelling suspect CHF he is a history of hypertension, methamphetamine and fentanyl abuse. Patient does not appear to be in extremis, he is tachycardic but not hypotensive or hypoxic. He also had concern about possible bumps in the genital region and appears to have genital warts. Discussed with patient will send HIV, hepatitis, urine GC and will evaluate with CBC, CMP, troponin, BNP he does appear to have a new right bundle-branch block compared to prior EKG from 2019 chest x-ray. Patient's labs including HIV, urine GC negative. Hemoglobin is 10, platelets are 426, patient has leftward shift. Coags are negative, sodium is 135 with normal renal function, electrolytes, LFTs, negative troponin, BNP is only 137. Patient is positive for amphetamines and methamphetamines. Patient hepatitis panel is still negative. Patient vitals appear improved in department after some diuresis. Plan to restart patient's lisinopril, short course of Lasix. Patient referred to follow up for his genital warts and discussed he needs follow-up does have quite a bit of swelling in his extremities needs further evaluation he does not appear to have any acute emergent changes requiring hospitalization currently. Patient was open BRAZING MACHINE OPERATOR AUTOMATIC reaching out to help him establish with a primary care, he states he currently has insurance he was homeless in the past but states he currently has a place to stay. Discharge Plan Departure Patient Disposition: Home Clinical Impression: Bilateral edema of lower extremity, Genital warts Instructions: DI for Peripheral Edema -- Bilateral Activity Restrictions/Additional Instructions: Your swelling can occur for multiple reasons, you need to follow up with primary care to figure out the reason why. There are treatments for genital warts but require prescription and monitoring referral for primary care has been included today. Your hepatitis panel including hepatitis-C, B and A is still pending all of your other blood work including HIV, urine gonorrhea/chlamydia are negative today I will ask our social services director to reach out to this coming week. You can call for assistance and setting up primary care follow-up at [phone] Please restart your lisinopril 20 mg daily. Take Lasix daily until gone. You may need to be on this medication more regularly. Please continue to avoid amphetamines and fentanyl as these can cause heart failure. [facility] [place]. Please return for worsening swelling in your legs, new chest pain, shortness of breath, increasing pain, fevers, difficulty lying flat or other new or concerning changes. Prescriptions: New lisinopril 20 mg tablet 20 mg PO DAILY Qty: 30 0RF furosemide [Lasix] 40 mg tablet 40 mg PO DAILY Qty: 7 0RF No Action lisinopril 20 mg Tablet 20 mg PO DAILY Qty: 30 0RF Referrals: Deya Rosen DO [Physician] - Visit Report Forms: Patient Portal/API
[2022-03-14 18:45] LABS: Add Manual Diff / Slide Review NO; Basophils Absolute Auto 100 /uL (0-100); Basophils Percent Auto 0.7 % (0-2); Eosinophils Absolute Auto 100 /uL (0-450); Eosinophils Percent Auto 1.9 % (2-4); Hematocrit 30.7 % (41-53); Lymphocytes Absolute Auto 800 /uL (1100-4500); Lymphocytes Percent Auto 10.6 % (25-40); Mean Corpuscular HGB Conc 32.4 % (30-36); Mean Corpuscular Hemoglobin 27.7 PG (26-34); Mean Corpuscular Volume 85.2 fL (80-100); Monocytes Absolute Auto 800 /uL (0-900); Monocytes Percent Auto 10.2 % (3-14); Neutrophils Absolute Auto 5800 /uL (1500-7000); Neutrophils Percent Auto 76.6 % (50-75); Platelet Count 426 X10^3/uL (150-400); Red Cell Distribution Width 14.9 % (11.6-14.8); White Blood Cell Count 7.5 X10^3/uL (4.5-11.0)
[2022-03-14] MEDS: FUROSEMIDE 40 MG/4 ML VIAL IV (18:54)
[2022-03-14 18:59] LABS: INR 1.1 (0.9-1.3); Prothrombin Time 12.6 SECONDS (10.1-12.7)
[2022-03-14 19:01] LABS: PTT Partial Thromboplastin Tim 35 SECONDS (26-36)
[2022-03-14 19:03] LABS: Alanine Aminotransferase 20 IU/L (<50); Albumin 3.8 g/dL (3.5-5.0); Albumin Globulin Ratio 0.7 (1.0-2.8); Alkaline Phosphatase 120 U/L (38-126); Aspartate Aminotransferase 26 IU/L (17-59); BUN Creatinine Ratio 12.9 (6-22); Bilirubin Total 0.4 mg/dL (0.2-1.3); Blood Urea Nitrogen 12 mg/dL (9-20); Calcium 8.6 mg/dL (8.4-10.2); Carbon Dioxide 32 mmol/L (22-32); Chloride 98 mmol/L (98-107); Creatine Kinase 125 U/L (55-170); Estimated Glomerular Filt Rate > 60 mL/min (>60); Globulin 5.1 g/dL (1.7-4.1); Glucose 96 mg/dL (70-100); HEMOLYSIS < 15 (0-50); Lipase 41 U/L (23-300); Magnesium 2.1 mg/dL (1.6-2.3); Sodium 135 mmol/L (137-145); Total Protein 8.9 g/dL (6.3-8.2)
[2022-03-14 19:12] LABS: NT-proBNP (BNP-Adult 18+) 137 pg/mL (<125)
[2022-03-14 19:14] LABS: Troponin I < 0.012 ng/mL (0.01-0.034)
[2022-03-14 19:30] LABS: UR Morphine/Opiate cutoff 300 Negative (Negative); Ur Creatinine Normal (Normal); Ur Specific Gravity Normal (Normal); Urine Amphetamines Positive (Negative); Urine Barbiturates Negative (Negative); Urine Benzodiazepines Negative (Negative); Urine Cocaine Negative (Negative); Urine MDMA Negative (Negative); Urine Methadone Negative (Negative); Urine Methamphetamines Positive (Negative); Urine Oxycodone Negative (Negative); Urine Phencyclidine Negative (Negative); Urine Tetrahydrocannabinol Negative (Negative); Urine Tricyclic Antidepressant Negative (Negative); Urine pH Normal (Normal)
[2022-03-14 19:31] LABS: Appearance Urine UA CLEAR; Bilirubin Urine UA NEGATIVE (NEGATIVE); Color Urine UA YELLOW; Glucose Urine UA NEGATIVE (Negative); Ketones Urine UA NEGATIVE (NEGATIVE); Leukocyte Esterase Urine UA NEGATIVE (NEGATIVE); Nitrite Urine UA NEGATIVE (Negative); Occult Blood Urine UA NEGATIVE (Negative); Protein Urine UA NEGATIVE (Negative); Urobilinogen Urine UA 0.2 E.U./dL (0.2)
[2022-03-14 19:38] LABS: Bacteria Urine Occasional (0-1); Culture Indicated Urine Cult Not Indicated; RBC Urine 1-5/HPF (0-5/HPF); Squamous Epithelial Cell Urine None Seen (0-5/HPF); WBC Urine 0-1/HPF (0-5/HPF)
[2022-03-14 19:40] LABS: Influenza A - CEPHEID Flu A NEGATIVE (NEGATIVE); Influenza B - CEPHEID Flu B NEGATIVE (NEGATIVE)
[2022-03-14 19:41] LABS: COVID-19 CEPHEID 4-PLEX PCR Negative (Negative)
[2022-03-14 19:48] LABS: HIV 1 & 2 Ab/Ag 4th Gen Combo NEGATIVE (NEGATIVE)
[2022-03-14 21:38] LABS: Urine Chlamydia NOT DETECTED; Urine N gonorrhoeae NOT DETECTED
[2022-03-16 09:08] LABS: HBsAg Screen Negative (Negative); Hepatitis A Antibody IgM Negative (Negative); Hepatitis B Core Antibody IgM Negative (Negative); Hepatitis C Antibody 0.1 s/co ratio (0.0-0.9)
== END 2022-03-14 22:27 | disposition home or self-care (01) ==
PROVIDERS: Emergency Provider Emergency Medicine
DX: R60.0 Localized edema (principal); A63.0 Anogenital (venereal) warts; R07.9 Chest pain, unspecified; Z20.822 Contact with and (suspected) exposure to COVID-19
CPT/HCPCS: 36415; 71045; 80053; 80074; 80305; 81001; 81003; 82550; 82553; 83690; 83735; 83880; 84484; 85025; 85610; 85730; 87389; 87491; 87591; 87635; 93005; 93010; 96374; 99284; C9803; J1940